=== PATIENT | male | born 1945 | race Caucasian/White ===

== ENCOUNTER → 2017-12-09 09:54 | Outpatient (CLI) | payer OTHER, SELFPAY ==
[2017-12-09 11:37] LABS: Prostate Specific Antigen < 0.064 ng/mL (0.10-4.00)
== END ==
PROVIDERS: PCP Family Medicine; Visit Provider Urology
DX: C61 Malignant neoplasm of prostate (principal)
CPT/HCPCS: 36415; 84153

== ENCOUNTER → 2017-12-18 14:46 | Oncology outpatient (ONC) | payer OTHER, SELFPAY ==
[2017-12-18 16:15] VITALS: BP 122/87; PULSE 60; RESP 15; TEMP 36.6; O2SAT 99
--- NOTE | 2017-12-19 12:23 | ONC.GENERIC ---
Diagnosis (1) Prostate cancer Diagnosis: 12/19/17 12:50 Mr. Perez is a very pleasant 72-year-old male from [place], [place]. He has been kindly referred today by Dr. Love for formal medical oncologic input, regarding previously diagnosed stage IIIB prostate cancer. History of Present Illness History Of Present Illness: 12/19/17 12:51 This kind gentleman's present illness, dates back to December 2014, when the patient was noted to have a sudden elevation in his PSA level, reportedly to 6.34. He was subsequently triaged by Dr. Daugherty, a urologist, in [place]. Prostatic biopsies were ultimately obtained, confirming prostate cancer (Ilana 3 + 4 = 7). The patient was then taken to the operating room on 06/02/2015, for a radical prostatectomy. Final pathology confirmed bilateral seminal vesicle invasion. The patient also had evidence of perineural invasion. Three regional lymph nodes were negative for metastatic disease. The patient was staged as T3b, N0, stage IIIB. Postoperatively, the patient was triaged by Dr. Nicole, who recommended consideration for adjuvant radiation therapy, which the patient respectfully declined. Postoperatively, the patient's PSA level quickly returned to a undetectable level. Subsequent PSA monitoring was conducted every 3 months. On 04/17/2017, a slight uptick in his PSA level was noted, at 0.076. A 2nd PSA level on 05/16/2017 was 0.072. On 06/11/2017, the patient received Lupron Depot 45 mg IM. Surveillance x-rays at that time, included a negative CT series and a negative bone scan. During this time frame, the patient was seen by Dr. Au, who apparently recommended consideration for salvage radiation therapy. Again, the patient respectfully declined treatment. Since receiving his LHRH agonist therapy in May, this gentleman's PSA levels have again returned to an undetectable level. The most recent PSA level that I have, from December 09, was less than 0.064. Mr. Perez commented today that he hated being on Lupron Depot. ?I hated the hot flashes, weight gain, dizziness and generalized weakness. Currently, this gentleman denies any complaints of focal bone pain in either his ribcage or spine. This gentleman is currently under treatment, for a poorly defined rheumatologic disorder, which is characterized by multi positional pain with movement. This was initially treated with prednisone by his freelance court reporter. Currently he is receiving weekly methotrexate, @ 25 mg per dosage. Home Medications and Allergies Home Medications Medication Instructions Recorded Confirmed Type difluprednate [Durezol] 1 drp OPHTH Q1-2D #0 06/12/16 12/18/17 History alendronate 70 mg PO QWEEK 12/18/17 12/18/17 History calcium citrate 250 mg PO QAM 12/18/17 12/18/17 History cholecalciferol (vitamin D3) 2,000 unit PO DAILY 12/18/17 12/18/17 History [Vitamin D3] ibuprofen 400 mg PO Q4-6H PRN 12/18/17 12/18/17 History methotrexate 10 mg/m2 PO QWEEK 12/18/17 12/18/17 History vitamin B complex 1 cap PO DAILY 12/18/17 12/18/17 History Allergies Allergy/AdvReac Type Severity Reaction Status Date / Time pseudoephedrine Allergy Severe URINARY Unverified 10/29/17 12:17 [PSEUDOEPHEDRINE] ISSUES Iodinated Contrast- Oral and Allergy Mild HOT, ITCHY Unverified 10/29/17 12:17 IV Dye [IODINATED CONTRAST MEDIA - IV DYE] Past History Past Medical History: As noted above, this patient remains under the care of a freelance court reporter, for a poorly defined rheumatologic disorder, characterized by multi positional pain on movement. This gentleman reportedly has a surveillance CBC obtained every 6 months. Social History: Mr. Perez is lives with his Talia in [place]. They have 2 grown sons. 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 Family History: Both parents are . His mother at age 50, from metastatic melanoma, in 1963. His father at age 92, apparently from a drug reaction. Two sisters and 1 brother survive. His only brother is obese and suffers from diabetes. He has significant neuropathy. He has previously had one of his lower extremities amputated. There is no family history of prostate cancer. Review of Systems Review of Systems: 1. General. The patient notes recent weight gain, while on the Lupron Depot. Current appetite is fine. He denies any recent fever, chills or night sweats. 2. HEENT. Recent diminution in visual acuity. No auditory complaints. 3. Lungs. No current complaints of cough or dyspnea. 4. Heart. No history of heart disease. 5. GI. No history of peptic ulcer disease, hepatitis or gallbladder disease. 6. . See present illness. 7. Rheumatologic. See past medical history. 8. Endocrine. No history of thyroid disease or diabetes. 9. Skin. Previous excision of several skin cancers, including both basal cell carcinoma and squamous cell carcinoma. 10. Neurologic. No history of stroke or seizure activity. Exam Vital Signs: Vital Signs - 24 hr 12/18/17 16:15 Temperature 97.8 F Pulse Rate 60 Respiratory Rate 15 Blood Pressure 122/87 H Pulse Oximetry 99 Exam: Blood pressure 122/87. Temperature 97.8?. Pulse rate 60. O2 saturation on room air was 99%. Weight 191 lb. The pupils today were equal and reactive to light. There was no scleral icterus. The oropharynx was clear. There was no direct percussible spinal tenderness. There was no palpable rib cage tenderness. Both lungs were clear to auscultation and percussion. No pathologic lymphadenopathy was noted today in the pre or postauricular, neck, chin, supraclavicular, axillary or inguinal areas. Minimal bilateral gynecomastia was noted. Heart sounds were fine. The abdomen was soft, nontender and without palpable hepatomegaly. There was no lower extremity edema. Skin examination was unremarkable. Impression In summary, this is a 72-year-old male, now approximately 30.5 months out from a radical prostatectomy for stage IIIB prostate cancer. This gentleman declined consideration for postoperative adjuvant radiation therapy. He subsequently displayed evidence of early biochemical relapse this past fall, which led to a single injection of Lupron Depot (45 mg.). At that time, the patient declined consideration for salvage radiation therapy. Previous large randomized clinical trials in patients with T3 and margin positive prostate cancer have demonstrated that adjuvant radiation therapy significantly improves both biochemical and metastatic relapse-free survival. However, these trials have yielded conflicting results regarding the impact on overall survival. Whether these benefits applied all patients with T3 disease, or only a subgroup to those with positive surgical margins, is uncertain. These trials compared adjuvant RT with a treatment strategy of observation in which salvage RT was not uniformly administered, if a biochemical recurrence was observed. Whether or not adjuvant RT offers a benefit in terms of metastatic-free and overall survival, compared with salvage RT given at the 1st evidence of a biochemical recurrence, remains uncertain. For men with pathologic stage T3 disease, national guidelines recommend consideration for adjuvant external beam radiation therapy following radical prostatectomy. For patient's choosing not to receive postoperative RT, careful monitoring for evidence of a biochemical recurrence, followed by salvage RT at the earliest evidence of relapse, is considered an alternative approach. In conclusion therefore, it is my recommendation that Mr. Perez reconsider salvage radiation therapy. I have also discussed my comments with his Talia. I have contacted the [facility], to get Mr. Perez signed up for revisitation with either Dr. Nicole or Dr. Au. I will schedule this gentleman back for revisitation in our office in approximately 3 months.
== END ==
PROVIDERS: PCP Family Medicine; Visit Provider Internal Medicine Hematology & Oncology
DX: C61 Malignant neoplasm of prostate (principal)
CPT/HCPCS: 99205; 99215

== ENCOUNTER → 2018-01-28 12:08 | Outpatient (CLI) | payer OTHER, SELFPAY ==
--- NOTE | 2018-01-28 12:10 | DI.RAD.S_ITS ---
PROCEDURE: XR LUMBAR SPINE MIN 4V INDICATIONS: Lumbar pain TECHNIQUE: 5 views of the lumbar spine were acquired. COMPARISON: None. FINDINGS: Bones: 5 nonrib-bearing vertebrae are present. There is normal bony alignment. No vertebral body compression fractures. No suspicious bony lesions. Soft tissues: Overlying bowel gas pattern is normal. No suspicious soft tissue calcifications. Oblique images: No pars defects. IMPRESSION: Minimal degenerative disc disease seen, no foraminal stenosis found. Dictated by: Delfin Silverio M.D. on 01/28/2018 at 12:45 Approved by: Delfin Silverio M.D. on 01/28/2018 at 12:45
== END ==
PROVIDERS: PCP Family Medicine; Visit Provider Family Medicine
DX: M51.36 Other intervertebral disc degeneration, lumbar region (principal)
CPT/HCPCS: 72110

== ENCOUNTER → 2018-01-29 12:23 | Outpatient (CLI) | payer OTHER, SELFPAY ==
[2018-01-31 17:48] LABS: Fecal Immunochemical Test NOT DETECTED
== END ==
PROVIDERS: PCP Family Medicine; Visit Provider Family Medicine
DX: Z12.11 Encounter for screening for malignant neoplasm of colon (principal)
CPT/HCPCS: 82274

== ENCOUNTER → 2018-05-06 13:13 | Outpatient (CLI) | payer OTHER, SELFPAY ==
--- NOTE | 2018-05-06 13:16 | DI.RAD.S_ITS ---
PROCEDURE: XR CHEST 2V INDICATIONS: syncope, chest wall pain TECHNIQUE: 2 views of the chest were acquired. COMPARISON: [facility], CT, ABDOMEN/PELVIS WITH CONTRAST, 06/11/2017, 10:01. [facility], CR, CHEST 1 VIEW, 12/03/2016, 12:34. FINDINGS: Surgical changes and devices: None. Lungs and pleura: No pleural effusions or pneumothorax. No acute consolidation. There is scattered subsegmental atelectasis and/or scarring. Mediastinum: Mediastinal contours are normal. Heart size is normal. Aorta is tortuous as before Bones and chest wall: No suspicious bony abnormalities. Soft tissues appear unremarkable. IMPRESSION: No acute disease. Subsegmental scarring/atelectasis Dictated by: Sukhdev Mccullough M.D. on 05/06/2018 at 14:23 Approved by: Sukhdev Mccullough M.D. on 05/06/2018 at 14:27
[2018-05-06 15:25] LABS: Add Manual Diff / Slide Review NO; Basophils Percent Auto 0.4 % (0-2); Eosinophils Percent Auto 1.7 % (2-4); Hematocrit 45.5 % (41-53); Hemoglobin 14.8 g/dL (13.5-17.5); Lymphocytes Percent Auto 15.5 % (25-40); Mean Corpuscular HGB Conc 32.6 % (30-36); Mean Corpuscular Hemoglobin 29.1 PG (26-34); Mean Corpuscular Volume 89.3 fL (80-100); Monocytes Percent Auto 6.2 % (3-14); Neutrophils Absolute Auto 3900 /uL (3000-5900); Neutrophils Percent Auto 76.2 % (50-75); Platelet Count 146 X10^3/uL (150-400); Red Blood Cell Count 5.09 X10^6/uL (4.5-5.9); Red Cell Distribution Width 17.2 % (11.6-14.8); White Blood Cell Count 5.1 X10^3/uL (4.5-11.0)
[2018-05-06 15:42] LABS: Alanine Aminotransferase 43 IU/L (21-72); Albumin 3.9 g/dL (3.5-5.0); Albumin Globulin Ratio 1.3 (1.0-2.8); Alkaline Phosphatase 91 U/L (38-126); Aspartate Aminotransferase 34 IU/L (17-59); Bilirubin Total 1.4 mg/dL (0.2-1.3); Blood Urea Nitrogen 24 mg/dL (9-20); Calcium 9.2 mg/dL (8.4-10.2); Carbon Dioxide 28 mmol/L (22-32); Chloride 106 mmol/L (98-107); Estimated Glomerular Filt Rate > 60.0 mL/min (>60); Glucose 78 mg/dL (80-110); HEMOLYSIS < 15 (0-50); Sodium 143 mmol/L (137-145); Total Protein 6.9 g/dL (6.3-8.2)
[2018-05-06 16:34] LABS: Thyroid Stimulating Hormone 3.65 uIU/mL (0.47-4.68)
== END ==
PROVIDERS: PCP Family Medicine; Visit Provider Family Medicine
DX: R07.89 Other chest pain (principal); R55 Syncope and collapse
CPT/HCPCS: 36415; 71046; 80053; 84443; 85025

== ENCOUNTER → 2018-06-09 08:17 | Outpatient (CLI) | payer OTHER, SELFPAY ==
--- NOTE | 2018-06-09 08:18 | DI.ECHO.S_ITS ---
[facility] +---------+ Hospital +---------+ : : [address] : : : : [id number] : : : : Phone: [phone]+ Echocardiogram Report + + :Name: FABRIZIO BUENO Study Date: 06/09/2018 Height: 74 in : :[facility] Exam Location: IS Weight: 185 lb : : Gender: Male BSA: 2.1 m2 : :: 1945 Age: 72 yrs BP: 110/58 mmHg: :Reason For Study: CHEST PAIN : : Performed By: Derick Mccracken : :Referring: VAHID JACOBS : + + Interpretation Summary The left ventricle is normal in size, wall thickness, and systolic function without any focal wall motion abnormalities. The right ventricle is normal in size and function. The right ventricular systolic pressure is estimated to be at least 24 mmHg based on an estimated right atrial pressure of 3 mm Hg. There is no pericardial effusion. The echocardiogram is within normal limits. This patient's echocardiogram is normal. A etiology for the patient's chest discomfort is not identified. Procedure: A two-dimensional transthoracic echocardiogram with color flow and Doppler was performed. The study quality was technically adequate. Comparison is made with the echocardiogram of 03/12/17. The patient was in normal sinus rhythm during the exam. Left Ventricle: The left ventricle is normal in size. There is normal left ventricular wall thickness. The left ventricle is normal in size, wall thickness, and systolic function without any focal wall motion abnormalities. The ejection fraction is estimated to be 60-65%. There are no focal wall motion abnormalities. Diastolic parameters suggest probable normal left ventricular diastolic function and normal filling pressures. Right Ventricle: The right ventricle is normal in size and function. The right ventricular systolic function is normal. Atria: Both atria are normal in size. The interatrial septum is intact with no evidence for an atrial septal defect. Mitral Valve: The mitral valve is normal in structure and function. There is a mild amount of early systolic mitral regurgitation. This is not a holosystolic jet of mitral regurgitation and likely is not at all hemodynamically significant. Aortic Valve: The aortic valve is normal in structure and function. The aortic valve is trileaflet. The aortic valve opens well. No aortic regurgitation is present. Tricuspid Valve: The tricuspid valve is normal in structure and function. There is mild tricuspid regurgitation. The right ventricular systolic pressure is estimated to be at least 24 mmHg based on an estimated right atrial pressure of 3 mm Hg. Pulmonic Valve: The pulmonic valve is normal in structure and function. There is trace pulmonic regurgitation. Great Vessels: The aortic root is normal size. The ascending aorta is mildly enlarged. The pulmonary artery is normal size. The IVC is of normal diameter and collapses greater than 50% with a sniff. This suggests a low right atrial pressure of 3 mm Hg. Pericardium/ Pleura There is no pericardial effusion. There is no pleural effusion. MMode/2D Measurements & Calculations LVIDd: 4.7 cm Ao root diam: 3.5 cm LVIDs: 2.6 cm Aortic Jxn: 2.8 cm FS: 45.0 % asc Aorta Diam: 3.9 cm EPSS: 0.51 cm Ao Arch Diam (Prox Trans): 2.8 cm IVSd: 1.1 cm LVPWd: 1.0 cm LV rodrigues. diameter/BSA (cm/m^2): 2.2 LV sys. diameter/BSA (cm/m^2): 1.2 LA dimension: 4.1 cm RA long axis: 4.9 cm LA A2 area: 20.7 cm2 RA area: 19.0 cm2 LA A4 area: 17.2 cm2 RA vol: 62.9 ml LA length (vol): 5.6 cm RA : 29.9 ml/m2 LA vol: 54.0 ml IVC diam: 1.5 cm LA vol index: 25.7 ml/m2 RVD1 (basal): 4.7 cm RVD2 (mid): 3.8 cm Doppler Measurements & Calculations Ao V2 max: 145.6 cm/sec LVOT Max Braxton: 103.5 cm/sec Ao V2 mean: 102.7 cm/sec LV V1 max P.3 mmHg Ao max P.5 mmHg LV V1 VTI: 24.7 cm Ao mean P.7 mmHg sev ratio: 0.72 Ao V2 VTI: 34.2 cm MV E max braxton: 63.0 cm/sec TR max braxton: 227.3 cm/sec MV A max braxton: 68.8 cm/sec TR max P.7 mmHg MV E/A: 0.92 PA V2 max: 80.3 cm/sec Med Peak E' Braxton: 15.3 cm/sec PA V2 mean: 60.1 cm/sec E/E' med: 4.1 PA mean P.6 mmHg Lat Peak E' Braxton: 6.1 cm/sec PA pr(Accel): 24.1 mmHg E/E' lat: 10.3 PA Accel Time: 0.12 sec E/e' average: 7.2 MV dec time: 0.17 sec Reading Physician:05:49 PM
--- NOTE | 2018-06-09 08:18 | DI.US.S_ITS ---
PROCEDURE: US CAROTID DOPPLER BI INDICATIONS: chest pain, syncope TECHNIQUE: Color and pulse Doppler interrogation was performed of both carotid systems, with image documentation and velocity measurements. COMPARISON: None. FINDINGS: Stenosis calculations are based on SRU (Society of Radiologists in Ultrasound) criteria. Right side: Brachial blood pressure: 109/68 mm Hg. Common carotid artery peak systolic velocity: 84 cm/sec. Internal carotid artery peak systolic velocity: 64 cm/sec. Internal carotid artery end diastolic velocity: 20 cm/sec. External carotid artery peak systolic velocity: 88 cm/sec. ICA/CCA peak systolic ratio: 0.8. Prieto scale imaging description: Normal. Percent internal carotid artery stenosis: None found. Vertebral artery: Flow direction is antegrade. Left side: Brachial blood pressure: 115/75 mm Hg. Common carotid artery peak systolic velocity: 91 cm/sec. Internal carotid artery peak systolic velocity: 81 cm/sec. Internal carotid artery end diastolic velocity: 17 cm/sec. External carotid artery peak systolic velocity: 108 cm/sec. ICA/CCA peak systolic ratio: 0.9. Prieto scale imaging description: Normal. Percent internal carotid artery stenosis: None found. Vertebral artery: Flow direction is antegrade. IMPRESSION: Normal examination bilaterally. Dictated by: Delfin Silverio M.D. on 06/09/2018 at 11:35 Approved by: Delfin Silverio M.D. on 06/09/2018 at 11:36
== END ==
PROVIDERS: PCP Family Medicine; Visit Provider Family Medicine
DX: I08.1 Rheumatic disorders of both mitral and tricuspid valves (principal); R07.89 Other chest pain; R55 Syncope and collapse
CPT/HCPCS: 93306; 93880

== ENCOUNTER → 2018-07-20 14:16 | Outpatient (CLI) | payer OTHER, SELFPAY ==
[2018-07-20 15:48] LABS: Prostate Specific Antigen < 0.064 ng/mL (0.10-4.00)
== END ==
PROVIDERS: Family Provider Family Medicine; PCP Family Medicine; Visit Provider Radiology Radiation Oncology
DX: Z85.46 Personal history of malignant neoplasm of prostate (principal)
CPT/HCPCS: 36415; 84153

== ENCOUNTER → 2018-08-12 10:47 | Outpatient (CLI) | payer OTHER, SELFPAY | PROVIDERS: Family Provider Family Medicine; PCP Family Medicine; Visit Provider Physician Assistant | DX: N39.0 Urinary tract infection, site not specified (principal) | CPT/HCPCS: 87077; 87086; 87186 ==

== ENCOUNTER → 2018-08-28 10:09 | Outpatient (CLI) | payer OTHER, SELFPAY ==
--- NOTE | 2018-08-28 10:11 | DI.RAD.S_ITS ---
PROCEDURE: XR CHEST 2V INDICATIONS: Rib pain TECHNIQUE: 2 views of the chest were acquired. COMPARISON: [facility], CR, XR CHEST 2V, 05/06/2018, 13:03. FINDINGS: Surgical changes and devices: None. Lungs and pleura: Lungs are clear. No pleural effusions or pneumothorax. Mediastinum: Calcified right, anterior paratracheal adenopathy, chronic. Prominent central pulmonary arteries. No central venous congestion. Tortuous, normal caliber thoracic aorta. Normal size heart. Bones and chest wall: No suspicious bony abnormalities. Chronic, mild T11 compression fracture. Soft tissues appear unremarkable. IMPRESSION: 1. No acute pulmonary process. 2. Mild COPD. 3. Chronic right paratracheal calcification. 4. Chronic, mild T11 compression fracture. Dictated by: Cris Obregon M.D. on 08/28/2018 at 11:06 Approved by: Cris Obregon M.D. on 08/28/2018 at 11:10
== END ==
PROVIDERS: PCP Family Medicine; Visit Provider Family Medicine
DX: R07.81 Pleurodynia (principal); J44.9 Chronic obstructive pulmonary disease, unspecified; J39.8 Other specified diseases of upper respiratory tract; M48.54XS Collapsed vertebra, not elsewhere classified, thoracic region, sequela of fracture
CPT/HCPCS: 71046

== ENCOUNTER → 2019-02-09 15:34 | Outpatient (CLI) | payer OTHER, SELFPAY ==
[2019-02-09 18:10] LABS: Prostate Specific Antigen < 0.064 ng/mL (0.10-4.00)
== END ==
PROVIDERS: PCP Family Medicine; Visit Provider Radiology Radiation Oncology
DX: C61 Malignant neoplasm of prostate (principal)
CPT/HCPCS: 36415; 84153

== ENCOUNTER → 2019-04-07 06:38 | Outpatient (CLI) | payer OTHER, SELFPAY ==
--- NOTE | 2019-04-07 06:39 | DI.MRI.S_ITS ---
PROCEDURE: MR HEAD/BRAIN WO/W CON INDICATIONS: Prostate cancer. Skin cancer. Ongoing headaches a right lens replacement can be seen.. Clinical concern for metastasis. TECHNIQUE: Noncontrast axial T1 spin echo, axial T2 fast spin echo, sagittal and axial FLAIR, coronal T2 fast spin echo, axial gradient echo, axial diffusion and ADC through the brain. After the administration of contrast, axial and coronal T1 spin echo with fat saturation through the brain. COMPARISON: [facility], CT, HEAD WITHOUT CONTRAST, 11/05/2012, 13:27. [facility], CT, HEAD WITHOUT CONTRAST, 02/05/2011, 10:28. FINDINGS: Image quality: Excellent. CSF spaces: Basal cisterns are patent. No extra-axial fluid collections. Ventricles are normal in size and shape. Brain: No midline shift. No intracranial bleeds or masses. No abnormal intracranial enhancement. There is cerebral volume loss for age. There is periventricular white matter chronic small vessel ischemic change. The brainstem appears normal. Diffusion-weighted images demonstrate no acute ischemic insults. No chronic ischemic insults. Normal intravascular flow voids are present. Skull and face: Calvarial marrow is normal in signal. Orbits appear normal. Sinuses: Sinuses and mastoids appear clear. IMPRESSION: No masses or abnormal enhancement can be seen. Note is made of age-appropriate brain parenchymal volume loss and chronic small vessel ischemic changes. No findings of acute or subacute infarction can be seen. Dictated by: Elias Preston M.D. on 04/07/2019 at 9:22 Approved by: Elias Preston M.D. on 04/07/2019 at 9:25
== END ==
PROVIDERS: PCP Family Medicine; Visit Provider Family Medicine
DX: C61 Malignant neoplasm of prostate (principal); C44.90 Unspecified malignant neoplasm of skin, unspecified; G44.83 Primary cough headache
CPT/HCPCS: 70553; A9579

== ENCOUNTER → 2019-06-02 13:36 | Outpatient (CLI) | payer OTHER, SELFPAY ==
[2019-06-02 14:30] LABS: BUN Creatinine Ratio 33.3 (6-22); Blood Urea Nitrogen 30 mg/dL (9-20); Carbon Dioxide 25 mmol/L (22-32); Chloride 108 mmol/L (98-107); Estimated Glomerular Filt Rate > 60.0 mL/min (>60); Glucose 76 mg/dL (80-110); HEMOLYSIS < 15 (0-50); Potassium 3.9 mmol/L (3.4-5.1); Sodium 140 mmol/L (137-145)
[2019-06-05 15:09] LABS: Parathyroid Hormone Int 26 pg/mL (14-64)
== END ==
PROVIDERS: PCP Family Medicine; Visit Provider Student in an Organized Health Care Education/Training Program
DX: M81.0 Age-related osteoporosis without current pathological fracture (principal); Z79.899 Other long term (current) drug therapy
CPT/HCPCS: 36415; 80048; 82306; 83970

== ENCOUNTER 2019-07-19 09:00 | Outpatient (RCR) | payer OTHER, SELFPAY ==
--- NOTE | 2019-04-23 15:02 | PT.OIE ---
Current Diagnoses Urgency of urination (04/23/19) Personal history of malignant neoplasm of prostate (04/23/19) Past Medical History (Last Reviewed 01/28/18 @ 11:47 by Verenice Love DO) Osteoarthritis (Chronic Unknown) Osteoporosis (Chronic Unknown) Prostate cancer (Acute ~2014) Rheumatoid arthritis (Chronic Unknown) Squamous cell carcinoma (Resolved ~05/2015) Tremor (Chronic Unknown) Past Surgical History (Last Reviewed 01/28/18 @ 11:48 by Verenice Love DO) History of carpal tunnel release (Resolved Unknown) Hx of prostatectomy (Resolved 2014) Hx of tonsillectomy (Resolved Unknown) Visit Care Team Role Provider Type Verenice Love DO Primary Care Provider Physician Specialty: [facility] Practice Address: [address] [place] [address], [address], [address] Email: [email or web address] Attending Provider Non-Staff Specialty: Urology Address: [address] [place] [address], [id number] Email: Physical Therapy Initial Evaluation PT-OP-A Visit Information Start: 04/23/19 13:01 Freq: Status: Active Protocol: Document 04/23/19 14:08 AMB (Rec: 04/23/19 15:02 AMB [email or web address]) Out-Patient Physical Therapy Visit Information Visit Information Visit Type Initial Evaluation Visit Start Time 08:15 Visit Stop Time 09:00 Total Visit Minutes 45 Visit Number 1 PT-OP-B Current Condition Start: 04/23/19 13:01 Freq: Status: Active Protocol: Document 04/23/19 14:08 AMB (Rec: 04/23/19 15:02 AMB [email or web address]) Current Condition History of Current Condition Onset Date 4 years ago Current Complaints constant dribbling of urine, erectile dysfunction History of Current Condition Wiliam reports prostate radical retropubic prostatectomy surgery 4 years ago, after which he has had near constant dribbling for which he uses a penile clamp and shield. He had prior physical therapy right after surgery, and is wondering if some specific instruction will help this go around too. He denies specific worsening of symptoms it has stayed about the same, although he did have radiation about 2 years ago. He denies pain. He does have some urgency but can control the urgency so that he doesn't leak. He has noticed impotence since his surgery. He denies constipation, difficulty starting or stopping the stream of urine. 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 He does not drink caffeine or alcohol, but also thinks he probably only drinks 24 oz of water a day. Prior Functional Status Baseline Function- Work/School Continent before prostate surgery. Current Functional Impairments (Reported) Functional Limitations- ADL's Constant dribbling which he is unaware of when standing unless uses clamp. Personal Factors Other Personal Factors That May Effect osteoporosis, essential tremor Therapy/Recovery PT-OP-C Subjective Start: 04/23/19 13:01 Freq: Status: Active Protocol: Document 04/23/19 14:08 AMB (Rec: 04/23/19 15:02 AMB [email or web address]) Patient Questionnaires Pelvic Pain and Urgency/Frequency Patient Symptom Scale Pelvic Pain Score 5 PT-OP-I Pelvic Floor Start: 04/23/19 13:01 Freq: Status: Active Protocol: Document 04/23/19 14:08 AMB (Rec: 04/23/19 15:02 AMB [email or web address]) Pelvic Floor Assessment Urine Pelvic Floor Surgery Yes: radical prostatectomy Urinary Symptoms Dribbling After Urination Other Urinary Symptoms dribbling is worse after the shower Leakage Size Small Leakage Cause Exercise Other Leakage Causes standing Leaks Per Day constant Voiding Frequency every 3-4 hours Nocturia 0-1 Pelvic Clock Inter-Rectal Assessment No tenderness reported with inter-anal assessment Contraction Ability Voluntary Contraction Weak Voluntary Relaxation Weak Manual Muscle Testing Left 3 Manual Muscle Testing Right 3 Manual Muscle Testing Anterior 3 Manual Muscle Testing Posterior 3 Muscle Endurance (Seconds) 5 Number of Quick Contractions In 10 8 Seconds PT-OP-T Assessment and Plan Start: 04/23/19 13:01 Freq: Status: Active Protocol: Document 04/23/19 14:08 AMB (Rec: 04/23/19 15:02 AMB [email or web address]) Physical Therapy Assessment Rehab Potential Rehabilitation Potential Good Evaluation Complexity Number of Personal Factors/Comorbidities 1-2 Number of Body Systems Impaired 3 Clinical Presentation at Evaluation Evolving Impairments Impairments Functional Activities,Soft Tissue Mobility,Strength Goals Three Impairment pelvic floor strength/ relaxation Short Term Goal (STG) Wiliam will increase his pelvic floor strength to 4/5. STG Duration 4 weeks Group Home Goal (LTG) Wiliam will be able to tighten and relax his pelvic floor on command. LTG Duration 8 weeks Two Impairment erectile dysfunction Short Term Goal (STG) Wiliam will be independent with an HEP to release his perineal muscles. STG Duration 4 weeks One Impairment continence Short Term Goal (STG) Wiliam will move from sit to stand without his clamp without leaking. STG Duration 4 weeks Group Home Goal (LTG) Wiliam will stand for 10 minutes without leaking. LTG Duration 8 weeks Assessment Summary Assessment Wiliam attends physical therapy 4 years s/p prostatectomy with radiation with near constant urinary leaking for which he uses a penile clamp. He does not notice leaking except when he is standing or walking. 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 He is also concerned about his erectile dysfunction, so if his pelvic floor muscles remain tight, progressive stretching/ relaxation may continue to be warranted. Physical Therapy Plan Frequency and Duration Frequency of Treatment 1x/Week Duration of Treatment 8 weeks Plan of Care Start Date 04/23/19 Plan of Care End Date 06/18/19 Therapeutic Interventions Therapeutic Interventions Gait Training,Manual Therapy, Neuromuscular Re-education, Self-Care/Home Management,Soft Tissue Mobilization, Therapeutic Activities, Therapeutic Exercises Modalities Biofeedback,Electric Stimulation Next Visit Focus/Plan Next Note Type Treatment Note Next Visit Plan sEMG for strengthening and relaxation.
--- NOTE | 2019-04-23 15:02 | PT.OPPOC ---
Current Diagnoses Urgency of urination (04/23/19) Personal history of malignant neoplasm of prostate (04/23/19) Visit Care Team Role Provider Type Verenice Love DO Primary Care Provider Physician Specialty: Family Practice Address: [address] [place] [address], [address], [place], [address] Email: [email or web address] Damon Attending Provider Non-Staff Specialty: Urology Address: [address] [place] [address], [id number] Email: Plan Of Care PT-OP-T Assessment and Plan Start: 04/23/19 13:01 Freq: Status: Active Protocol: Document 04/23/19 14:08 AMB (Rec: 04/23/19 15:02 AMB [email or web address]) Physical Therapy Assessment Rehab Potential Rehabilitation Potential Good Evaluation Complexity Number of Personal Factors/Comorbidities 1-2 Number of Body Systems Impaired 3 Clinical Presentation at Evaluation Evolving Impairments Impairments Functional Activities,Soft Tissue Mobility,Strength Goals Three Impairment pelvic floor strength/ relaxation Short Term Goal (STG) Wiliam will increase his pelvic floor strength to 4/5. STG Duration 4 weeks Alf Goal (LTG) Wiliam will be able to tighten and relax his pelvic floor on command. LTG Duration 8 weeks Two Impairment erectile dysfunction Short Term Goal (STG) Wiliam will be independent with an HEP to release his perineal muscles. STG Duration 4 weeks One Impairment continence Short Term Goal (STG) Wiliam will move from sit to stand without his clamp without leaking. STG Duration 4 weeks Alf Goal (LTG) Wiliam will stand for 10 minutes without leaking. LTG Duration 8 weeks Assessment Summary Assessment Wiliam attends physical therapy 4 years s/p prostatectomy with radiation with near constant urinary leaking for which he uses a penile clamp. He does not notice leaking except when he is standing or walking. 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 He is also concerned about his erectile dysfunction, so if his pelvic floor muscles remain tight, progressive stretching/ relaxation may continue to be warranted. Physical Therapy Plan Frequency and Duration Frequency of Treatment 1x/Week Duration of Treatment 8 weeks Plan of Care Start Date 04/23/19 Plan of Care End Date 06/18/19 Therapeutic Interventions Therapeutic Interventions Gait Training,Manual Therapy, Neuromuscular Re-education, Self-Care/Home Management,Soft Tissue Mobilization, Therapeutic Activities, Therapeutic Exercises Modalities Biofeedback,Electric Stimulation Next Visit Focus/Plan Next Note Type Treatment Note Next Visit Plan sEMG for strengthening and relaxation. Plan of Care Dates Plan of Care Start Date 04/23/19 Plan of Care End Date 06/18/19
--- NOTE | 2019-04-30 14:30 | PT.OTN ---
Current Diagnoses Urgency of urination (04/30/19) Personal history of malignant neoplasm of prostate (04/30/19) Physical Therapy Treatment Note PT-OP-A Visit Information Start: 04/23/19 13:01 Freq: Status: Active Protocol: Document 04/30/19 13:00 AMB (Rec: 05/01/19 10:42 AMB [email or web address]) Out-Patient Physical Therapy Visit Information Visit Information Visit Type Treatment Note Visit Start Time 13:00 Visit Stop Time 13:45 Total Visit Minutes 45 Visit Number 2 PT-OP-B Current Condition Start: 04/23/19 13:01 Freq: Status: Active Protocol: Document 04/23/19 14:08 AMB (Rec: 04/23/19 15:02 AMB [email or web address]) Current Condition History of Current Condition Onset Date 4 years ago Current Complaints constant dribbling of urine, erectile dysfunction History of Current Condition Wiliam reports prostate radical retropubic prostatectomy surgery 4 years ago, after which he has had near constant dribbling for which he uses a penile clamp and shield. He had prior physical therapy right after surgery, and is wondering if some specific instruction will help this go around too. He denies specific worsening of symptoms it has stayed about the same, although he did have radiation about 2 years ago. He denies pain. He does have some urgency but can control the urgency so that he doesn't leak. He has noticed impotence since his surgery. He denies constipation, difficulty starting or stopping the stream of urine. 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 He does not drink caffeine or alcohol, but also thinks he probably only drinks 24 oz of water a day. Prior Functional Status Baseline Function- Work/School Continent before prostate surgery. Current Functional Impairments (Reported) Functional Limitations- ADL's Constant dribbling which he is unaware of when standing unless uses clamp. Personal Factors Other Personal Factors That May Effect osteoporosis, essential tremor Therapy/Recovery PT-OP-C Subjective Start: 04/23/19 13:01 Freq: Status: Active Protocol: Document 04/30/19 13:00 AMB (Rec: 05/01/19 10:42 AMB [email or web address]) OP-PT Subjective Patient Comments Patient Comments When asked to expand on the erectile dysfunction that Wiliam was concerned about at [facility]- he has been unable to achieve any erection since the surgery, previous PT did not work on this. PT-OP-I Pelvic Floor Start: 04/23/19 13:01 Freq: Status: Active Protocol: Document 04/23/19 14:08 AMB (Rec: 04/23/19 15:02 AMB [email or web address]) Pelvic Floor Assessment Urine Pelvic Floor Surgery Yes: radical prostatectomy Urinary Symptoms Dribbling After Urination Other Urinary Symptoms dribbling is worse after the shower Leakage Size Small Leakage Cause Exercise Other Leakage Causes standing Leaks Per Day constant Voiding Frequency every 3-4 hours Nocturia 0-1 Pelvic Clock Inter-Rectal Assessment No tenderness reported with inter-anal assessment Contraction Ability Voluntary Contraction Weak Voluntary Relaxation Weak Manual Muscle Testing Left 3 Manual Muscle Testing Right 3 Manual Muscle Testing Anterior 3 Manual Muscle Testing Posterior 3 Muscle Endurance (Seconds) 5 Number of Quick Contractions In 10 8 Seconds PT-OP-Q Treatments Start: 04/23/19 13:01 Freq: Status: Active Protocol: Document 04/30/19 13:00 AMB (Rec: 05/01/19 10:42 AMB [email or web address]) Manual Therapy Treatment Soft Tissue Mobilization 1 Body Location B obterator internus Comments externally palpation, more tender on the R Neuro Re-Education Treatment Other Activities 1 Details sEMG quick flicks and long holds Comments vc to isolate for now PT-OP-T Assessment and Plan Start: 04/23/19 13:01 Freq: Status: Active Protocol: Document 04/30/19 13:00 AMB (Rec: 05/01/19 10:42 AMB [email or web address]) Physical Therapy Assessment Assessment Summary Assessment Wiliam had good relaxation and quick contraction, but had difficulty with long holds, tends to compensate with abdominals. Physical Therapy Plan Next Visit Focus/Plan Next Note Type Treatment Note Next Visit Plan sEMG for strengthening and relaxation.
--- NOTE | 2019-05-06 16:00 | PT.OTN ---
Current Diagnoses Urgency of urination (05/06/19) Personal history of malignant neoplasm of prostate (05/06/19) Physical Therapy Treatment Note PT-OP-A Visit Information Start: 04/23/19 13:01 Freq: Status: Active Protocol: Document 05/06/19 14:30 AMB (Rec: 05/06/19 15:46 AMB [email or web address]) Out-Patient Physical Therapy Visit Information Visit Information Visit Type Treatment Note Visit Start Time 14:30 Visit Stop Time 15:20 Total Visit Minutes 50 Visit Number 3 PT-OP-B Current Condition Start: 04/23/19 13:01 Freq: Status: Active Protocol: Document 04/23/19 14:08 AMB (Rec: 04/23/19 15:02 AMB [email or web address]) Current Condition History of Current Condition Onset Date 4 years ago Current Complaints constant dribbling of urine, erectile dysfunction History of Current Condition Wiliam reports prostate radical retropubic prostatectomy surgery 4 years ago, after which he has had near constant dribbling for which he uses a penile clamp and shield. He had prior physical therapy right after surgery, and is wondering if some specific instruction will help this go around too. He denies specific worsening of symptoms it has stayed about the same, although he did have radiation about 2 years ago. He denies pain. He does have some urgency but can control the urgency so that he doesn't leak. He has noticed impotence since his surgery. He denies constipation, difficulty starting or stopping the stream of urine. 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 He does not drink caffeine or alcohol, but also thinks he probably only drinks 24 oz of water a day. Prior Functional Status Baseline Function- Work/School Continent before prostate surgery. Current Functional Impairments (Reported) Functional Limitations- ADL's Constant dribbling which he is unaware of when standing unless uses clamp. Personal Factors Other Personal Factors That May Effect osteoporosis, essential tremor Therapy/Recovery PT-OP-C Subjective Start: 04/23/19 13:01 Freq: Status: Active Protocol: Document 05/06/19 14:30 AMB (Rec: 05/06/19 15:46 AMB [email or web address]) OP-PT Subjective Patient Comments Patient Comments Pt is doing about the same. No tenderness noted after last visit, but did have more leaking than usual with hiking this morning. PT-OP-I Pelvic Floor Start: 04/23/19 13:01 Freq: Status: Active Protocol: Document 04/23/19 14:08 AMB (Rec: 04/23/19 15:02 AMB [email or web address]) Pelvic Floor Assessment Urine Pelvic Floor Surgery Yes: radical prostatectomy Urinary Symptoms Dribbling After Urination Other Urinary Symptoms dribbling is worse after the shower Leakage Size Small Leakage Cause Exercise Other Leakage Causes standing Leaks Per Day constant Voiding Frequency every 3-4 hours Nocturia 0-1 Pelvic Clock Inter-Rectal Assessment No tenderness reported with inter-anal assessment Contraction Ability Voluntary Contraction Weak Voluntary Relaxation Weak Manual Muscle Testing Left 3 Manual Muscle Testing Right 3 Manual Muscle Testing Anterior 3 Manual Muscle Testing Posterior 3 Muscle Endurance (Seconds) 5 Number of Quick Contractions In 10 8 Seconds PT-OP-Q Treatments Start: 04/23/19 13:01 Freq: Status: Active Protocol: Document 05/06/19 14:30 AMB (Rec: 05/07/19 08:03 AMB [email or web address]) Therapeutic Exercises Supine Exercises 3 Supine Exercise Name hip flexor stretch Reps/Minutes 30x2 2 Supine Exercise Name piriformis stretch Reps/Minutes 30x2 1 Supine Exercise Name hamstring stretch bilateral Comments passive Sitting Exercises 1 Sitting Exercise Name V sitting Reps/Minutes 30x2 Standing Exercises 3 Standing Exercise Name downward dog Reps/Minutes 30x2 2 Standing Exercise Name standing hamstring stretch against wall Reps/Minutes 30x2 1 Standing Exercise Name wide squat with thoracic rotation Reps/Minutes 30x2 Manual Therapy Treatment Soft Tissue Mobilization 1 Body Location B obterator internus Comments externally palpation, no significant tenderness today- checked levator ani and coccygeus today too. PT-OP-T Assessment and Plan Start: 04/23/19 13:01 Freq: Status: Active Protocol: Document 05/06/19 14:30 AMB (Rec: 05/07/19 08:03 AMB [email or web address]) Physical Therapy Assessment Assessment Summary Assessment No active or latent trigger points found in pelvis, pt with tight hamstrings and adductors. Will focus most on strengthening anteriorly. Physical Therapy Plan Next Visit Focus/Plan Next Note Type Treatment Note Next Visit Plan sEMG for strengthening and relaxation.
--- NOTE | 2019-05-14 13:58 | PT.OTN ---
Current Diagnoses Urgency of urination (05/14/19) Personal history of malignant neoplasm of prostate (05/14/19) Physical Therapy Treatment Note PT-OP-A Visit Information Start: 04/23/19 13:01 Freq: Status: Active Protocol: Document 05/14/19 13:00 AMB (Rec: 05/14/19 13:46 AMB [id number]) Out-Patient Physical Therapy Visit Information Visit Information Visit Type Treatment Note Visit Start Time 13:00 Visit Stop Time 13:45 Total Visit Minutes 45 Visit Number 4 PT-OP-B Current Condition Start: 04/23/19 13:01 Freq: Status: Active Protocol: Document 04/23/19 14:08 AMB (Rec: 04/23/19 15:02 AMB [email or web address]) Current Condition History of Current Condition Onset Date 4 years ago Current Complaints constant dribbling of urine, erectile dysfunction History of Current Condition Wiliam reports prostate radical retropubic prostatectomy surgery 4 years ago, after which he has had near constant dribbling for which he uses a penile clamp and shield. He had prior physical therapy right after surgery, and is wondering if some specific instruction will help this go around too. He denies specific worsening of symptoms it has stayed about the same, although he did have radiation about 2 years ago. He denies pain. He does have some urgency but can control the urgency so that he doesn't leak. He has noticed impotence since his surgery. He denies constipation, difficulty starting or stopping the stream of urine. 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 He does not drink caffeine or alcohol, but also thinks he probably only drinks 24 oz of water a day. Prior Functional Status Baseline Function- Work/School Continent before prostate surgery. Current Functional Impairments (Reported) Functional Limitations- ADL's Constant dribbling which he is unaware of when standing unless uses clamp. Personal Factors Other Personal Factors That May Effect osteoporosis, essential tremor Therapy/Recovery PT-OP-C Subjective Start: 04/23/19 13:01 Freq: Status: Active Protocol: Document 05/14/19 13:00 AMB (Rec: 05/14/19 13:46 AMB [id number]) OP-PT Subjective Patient Comments Patient Comments Pt forgot sensor today, has previously tried penile pump and did not find it helpufl. PT-OP-I Pelvic Floor Start: 04/23/19 13:01 Freq: Status: Active Protocol: Document 04/23/19 14:08 AMB (Rec: 04/23/19 15:02 AMB [email or web address]) Pelvic Floor Assessment Urine Pelvic Floor Surgery Yes: radical prostatectomy Urinary Symptoms Dribbling After Urination Other Urinary Symptoms dribbling is worse after the shower Leakage Size Small Leakage Cause Exercise Other Leakage Causes standing Leaks Per Day constant Voiding Frequency every 3-4 hours Nocturia 0-1 Pelvic Clock Inter-Rectal Assessment No tenderness reported with inter-anal assessment Contraction Ability Voluntary Contraction Weak Voluntary Relaxation Weak Manual Muscle Testing Left 3 Manual Muscle Testing Right 3 Manual Muscle Testing Anterior 3 Manual Muscle Testing Posterior 3 Muscle Endurance (Seconds) 5 Number of Quick Contractions In 10 8 Seconds PT-OP-Q Treatments Start: 04/23/19 13:01 Freq: Status: Active Protocol: Document 05/14/19 13:00 AMB (Rec: 05/15/19 13:58 AMB [email or web address]) Therapeutic Exercises Sitting Exercises 2 Sitting Exercise Name long holds 1 Sitting Exercise Name roll in roll out Resistance #3 tband Reps/Minutes 2x10 Standing Exercises 5 Standing Exercise Name sit to stand Comments difficult 4 Standing Exercise Name quick flicks and long holds Reps/Minutes 10 ea Comments with varied foot position PT-OP-T Assessment and Plan Start: 04/23/19 13:01 Freq: Status: Active Protocol: Document 05/14/19 13:00 AMB (Rec: 05/15/19 13:58 AMB [email or web address]) Physical Therapy Assessment Assessment Summary Assessment Pt's priority is the incontinence. Tolerated progression from supine to seated to standing well but sustaining a long hold remains challenging. Physical Therapy Plan Next Visit Focus/Plan Next Note Type Treatment Note Next Visit Plan sEMG for strengthening and relaxation.
--- NOTE | 2019-05-21 13:46 | PT.OTN ---
Current Diagnoses Urgency of urination (05/21/19) Personal history of malignant neoplasm of prostate (05/21/19) Physical Therapy Treatment Note PT-OP-A Visit Information Start: 04/23/19 13:01 Freq: Status: Active Protocol: Document 05/21/19 13:00 AMB (Rec: 05/21/19 13:45 AMB [id number]) Out-Patient Physical Therapy Visit Information Visit Information Visit Type Treatment Note Visit Start Time 13:00 Visit Stop Time 13:45 Total Visit Minutes 45 Visit Number 5 PT-OP-B Current Condition Start: 04/23/19 13:01 Freq: Status: Active Protocol: Document 04/23/19 14:08 AMB (Rec: 04/23/19 15:02 AMB [email or web address]) Current Condition History of Current Condition Onset Date 4 years ago Current Complaints constant dribbling of urine, erectile dysfunction History of Current Condition Wiliam reports prostate radical retropubic prostatectomy surgery 4 years ago, after which he has had near constant dribbling for which he uses a penile clamp and shield. He had prior physical therapy right after surgery, and is wondering if some specific instruction will help this go around too. He denies specific worsening of symptoms it has stayed about the same, although he did have radiation about 2 years ago. He denies pain. He does have some urgency but can control the urgency so that he doesn't leak. He has noticed impotence since his surgery. He denies constipation, difficulty starting or stopping the stream of urine. 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 He does not drink caffeine or alcohol, but also thinks he probably only drinks 24 oz of water a day. Prior Functional Status Baseline Function- Work/School Continent before prostate surgery. Current Functional Impairments (Reported) Functional Limitations- ADL's Constant dribbling which he is unaware of when standing unless uses clamp. Personal Factors Other Personal Factors That May Effect osteoporosis, essential tremor Therapy/Recovery PT-OP-C Subjective Start: 04/23/19 13:01 Freq: Status: Active Protocol: Document 05/21/19 13:00 AMB (Rec: 05/21/19 13:45 AMB [id number]) OP-PT Subjective Patient Comments Patient Comments Pt feeling hopeful that leaking is a little less, although standing exercises remain quite challenging. PT-OP-I Pelvic Floor Start: 04/23/19 13:01 Freq: Status: Active Protocol: Document 04/23/19 14:08 AMB (Rec: 04/23/19 15:02 AMB [email or web address]) Pelvic Floor Assessment Urine Pelvic Floor Surgery Yes: radical prostatectomy Urinary Symptoms Dribbling After Urination Other Urinary Symptoms dribbling is worse after the shower Leakage Size Small Leakage Cause Exercise Other Leakage Causes standing Leaks Per Day constant Voiding Frequency every 3-4 hours Nocturia 0-1 Pelvic Clock Inter-Rectal Assessment No tenderness reported with inter-anal assessment Contraction Ability Voluntary Contraction Weak Voluntary Relaxation Weak Manual Muscle Testing Left 3 Manual Muscle Testing Right 3 Manual Muscle Testing Anterior 3 Manual Muscle Testing Posterior 3 Muscle Endurance (Seconds) 5 Number of Quick Contractions In 10 8 Seconds PT-OP-Q Treatments Start: 04/23/19 13:01 Freq: Status: Active Protocol: Document 05/21/19 13:00 AMB (Rec: 05/21/19 13:45 AMB [id number]) Therapeutic Exercises Sitting Exercises 2 Sitting Exercise Name long holds Standing Exercises 5 Standing Exercise Name sit to stand Comments difficult 4 Standing Exercise Name quick flicks and long holds Reps/Minutes 10 ea Comments with varied foot position PT-OP-T Assessment and Plan Start: 04/23/19 13:01 Freq: Status: Active Protocol: Document 05/21/19 13:00 AMB (Rec: 05/21/19 13:45 AMB [id number]) Physical Therapy Assessment Assessment Summary Assessment Pt went on a 5 mile hike up and down [place] and didn't feel leaking so is hopeful things are improving a bit. Did have difficulty with feeling that there was something to relax when doing exercises at home. Physical Therapy Plan Next Visit Focus/Plan Next Note Type Treatment Note Next Visit Plan sEMG for strengthening and relaxation.
--- NOTE | 2019-06-07 12:51 | PT.OTN ---
Current Diagnoses Urgency of urination (06/07/19) Personal history of malignant neoplasm of prostate (06/07/19) Physical Therapy Treatment Note PT-OP-A Visit Information Start: 04/23/19 13:01 Freq: Status: Active Protocol: Document 06/07/19 07:30 AMB (Rec: 06/07/19 08:04 AMB [id number]) Out-Patient Physical Therapy Visit Information Visit Information Visit Type Treatment Note Visit Start Time 07:30 Visit Stop Time 08:15 Total Visit Minutes 45 Visit Number 6 PT-OP-B Current Condition Start: 04/23/19 13:01 Freq: Status: Active Protocol: Document 04/23/19 14:08 AMB (Rec: 04/23/19 15:02 AMB [email or web address]) Current Condition History of Current Condition Onset Date 4 years ago Current Complaints constant dribbling of urine, erectile dysfunction History of Current Condition Wiliam reports prostate radical retropubic prostatectomy surgery 4 years ago, after which he has had near constant dribbling for which he uses a penile clamp and shield. He had prior physical therapy right after surgery, and is wondering if some specific instruction will help this go around too. He denies specific worsening of symptoms it has stayed about the same, although he did have radiation about 2 years ago. He denies pain. He does have some urgency but can control the urgency so that he doesn't leak. He has noticed impotence since his surgery. He denies constipation, difficulty starting or stopping the stream of urine. 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 He does not drink caffeine or alcohol, but also thinks he probably only drinks 24 oz of water a day. Prior Functional Status Baseline Function- Work/School Continent before prostate surgery. Current Functional Impairments (Reported) Functional Limitations- ADL's Constant dribbling which he is unaware of when standing unless uses clamp. Personal Factors Other Personal Factors That May Effect osteoporosis, essential tremor Therapy/Recovery PT-OP-C Subjective Start: 04/23/19 13:01 Freq: Status: Active Protocol: Document 06/07/19 07:30 AMB (Rec: 06/07/19 08:04 AMB [id number]) OP-PT Subjective Patient Comments Patient Comments Pt can feel slight soreness with contraction 10 seconds but that goes away. PT-OP-I Pelvic Floor Start: 04/23/19 13:01 Freq: Status: Active Protocol: Document 04/23/19 14:08 AMB (Rec: 04/23/19 15:02 AMB [email or web address]) Pelvic Floor Assessment Urine Pelvic Floor Surgery Yes: radical prostatectomy Urinary Symptoms Dribbling After Urination Other Urinary Symptoms dribbling is worse after the shower Leakage Size Small Leakage Cause Exercise Other Leakage Causes standing Leaks Per Day constant Voiding Frequency every 3-4 hours Nocturia 0-1 Pelvic Clock Inter-Rectal Assessment No tenderness reported with inter-anal assessment Contraction Ability Voluntary Contraction Weak Voluntary Relaxation Weak Manual Muscle Testing Left 3 Manual Muscle Testing Right 3 Manual Muscle Testing Anterior 3 Manual Muscle Testing Posterior 3 Muscle Endurance (Seconds) 5 Number of Quick Contractions In 10 8 Seconds PT-OP-Q Treatments Start: 04/23/19 13:01 Freq: Status: Active Protocol: Document 06/07/19 11:11 AMB (Rec: 06/07/19 12:51 AMB [email or web address]) Therapeutic Exercises Sidelying Exercises 1 Sidelying Exercise Name quick flicks and long holds with sEMG Standing Exercises 5 Standing Exercise Name sit to stand Comments difficult 4 Standing Exercise Name quick flicks and long holds Reps/Minutes 10 ea Comments with varied foot position PT-OP-T Assessment and Plan Start: 04/23/19 13:01 Freq: Status: Active Protocol: Document 06/07/19 11:11 AMB (Rec: 06/07/19 12:51 AMB [email or web address]) Physical Therapy Assessment Assessment Summary Assessment Pt is thinking with prompting, that symptoms may be better, because he is noticing less leaking when getting out of the shower. He did feel that he leaked when getting out of the tub though. Physical Therapy Plan Next Visit Focus/Plan Next Note Type Treatment Note Next Visit Plan sEMG for strengthening and relaxation.
--- NOTE | 2019-07-02 15:04 | PT.OTN ---
Current Diagnoses Urgency of urination (07/02/19) Personal history of malignant neoplasm of prostate (07/02/19) Physical Therapy Treatment Note PT-OP-A Visit Information Start: 04/23/19 13:01 Freq: Status: Active Protocol: Document 07/02/19 13:45 AMB (Rec: 07/02/19 15:04 AMB [email or web address]) Out-Patient Physical Therapy Visit Information Visit Information Visit Type Treatment Note Visit Start Time 13:45 Visit Stop Time 14:30 Total Visit Minutes 45 Visit Number 7 PT-OP-B Current Condition Start: 04/23/19 13:01 Freq: Status: Active Protocol: Document 04/23/19 14:08 AMB (Rec: 04/23/19 15:02 AMB [email or web address]) Current Condition History of Current Condition Onset Date 4 years ago Current Complaints constant dribbling of urine, erectile dysfunction History of Current Condition Wiliam reports prostate radical retropubic prostatectomy surgery 4 years ago, after which he has had near constant dribbling for which he uses a penile clamp and shield. He had prior physical therapy right after surgery, and is wondering if some specific instruction will help this go around too. He denies specific worsening of symptoms it has stayed about the same, although he did have radiation about 2 years ago. He denies pain. He does have some urgency but can control the urgency so that he doesn't leak. He has noticed impotence since his surgery. He denies constipation, difficulty starting or stopping the stream of urine. 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 He does not drink caffeine or alcohol, but also thinks he probably only drinks 24 oz of water a day. Prior Functional Status Baseline Function- Work/School Continent before prostate surgery. Current Functional Impairments (Reported) Functional Limitations- ADL's Constant dribbling which he is unaware of when standing unless uses clamp. Personal Factors Other Personal Factors That May Effect osteoporosis, essential tremor Therapy/Recovery PT-OP-C Subjective Start: 04/23/19 13:01 Freq: Status: Active Protocol: Document 07/02/19 13:45 AMB (Rec: 07/02/19 15:04 AMB [email or web address]) OP-PT Subjective Patient Comments Patient Comments Pt tried to go a morning without wearing his clamp or a pad. He did not leak for about 4 hours- then he did his exercises and did well with those until he tried the squats and did leak with that. PT-OP-I Pelvic Floor Start: 04/23/19 13:01 Freq: Status: Active Protocol: Document 04/23/19 14:08 AMB (Rec: 04/23/19 15:02 AMB [email or web address]) Pelvic Floor Assessment Urine Pelvic Floor Surgery Yes: radical prostatectomy Urinary Symptoms Dribbling After Urination Other Urinary Symptoms dribbling is worse after the shower Leakage Size Small Leakage Cause Exercise Other Leakage Causes standing Leaks Per Day constant Voiding Frequency every 3-4 hours Nocturia 0-1 Pelvic Clock Inter-Rectal Assessment No tenderness reported with inter-anal assessment Contraction Ability Voluntary Contraction Weak Voluntary Relaxation Weak Manual Muscle Testing Left 3 Manual Muscle Testing Right 3 Manual Muscle Testing Anterior 3 Manual Muscle Testing Posterior 3 Muscle Endurance (Seconds) 5 Number of Quick Contractions In 10 8 Seconds PT-OP-Q Treatments Start: 04/23/19 13:01 Freq: Status: Active Protocol: Document 07/02/19 13:45 AMB (Rec: 07/02/19 15:04 AMB [email or web address]) Therapeutic Exercises Sitting Exercises 2 Sitting Exercise Name long holds Standing Exercises 5 Standing Exercise Name sit to stand Comments difficult 4 Standing Exercise Name quick flicks and long holds Reps/Minutes 10 ea Comments with varied foot position PT-OP-T Assessment and Plan Start: 04/23/19 13:01 Freq: Status: Active Protocol: Document 07/02/19 13:45 AMB (Rec: 07/02/19 15:04 AMB [email or web address]) Physical Therapy Assessment Assessment Summary Assessment Pt symptoms are improving, but continues to leak with increased abdominal pressure. Physical Therapy Plan Next Visit Focus/Plan Next Note Type Treatment Note Next Visit Plan sEMG for strengthening and relaxation.
--- NOTE | 2019-07-02 15:08 | PT.OPPOC ---
Current Diagnoses Urgency of urination (07/02/19) Personal history of malignant neoplasm of prostate (07/02/19) Visit Care Team Role Provider Type Verenice Love DO Primary Care Provider Physician Specialty: Family Practice Address: [address] [place] [address], [facility] [address], [place], [address] Email: [email or web address] Attending Provider Non-Staff Specialty: Urology Address: [address] [place] [address], [id number] Email: Plan Of Care PT-OP-T Assessment and Plan Start: 04/23/19 13:01 Freq: Status: Active Protocol: Document 07/02/19 13:45 AMB (Rec: 07/02/19 15:04 AMB [email or web address]) Physical Therapy Assessment Goals Three Impairment pelvic floor strength/ relaxation Short Term Goal (STG) Wiliam will increase his pelvic floor strength to 4/5. STG Duration 4 weeks Mcfp Goal (LTG) Wiliam will be able to tighten and relax his pelvic floor on command. LTG Duration MET Two Impairment erectile dysfunction Short Term Goal (STG) Wiliam will be independent with an HEP to release his perineal muscles. STG Duration 4 weeks One Impairment continence Short Term Goal (STG) Wiliam will move from sit to stand without his clamp without leaking. STG Duration 4 weeks Mcfp Goal (LTG) Wiliam will stand for 10 minutes without leaking. LTG Duration MET Assessment Summary Assessment Pt symptoms are improving, but continues to leak with increased abdominal pressure. Physical Therapy Plan Frequency and Duration Frequency of Treatment Every Other Week Duration of Treatment 8 weeks Plan of Care Start Date 07/02/19 Plan of Care End Date 08/27/19 Therapeutic Interventions Therapeutic Interventions Gait Training,Manual Therapy, Neuromuscular Re-education, Self-Care/Home Management,Soft Tissue Mobilization, Therapeutic Activities, Therapeutic Exercises Modalities Biofeedback,Electric Stimulation Next Visit Focus/Plan Next Note Type Treatment Note Next Visit Plan sEMG for strengthening and relaxation. Plan of Care Dates Plan of Care Start Date 07/02/19 Plan of Care End Date 08/27/19
--- NOTE | 2019-07-19 13:00 | PT.OTN ---
Current Diagnoses Urgency of urination (07/19/19) Personal history of malignant neoplasm of prostate (07/19/19) Physical Therapy Treatment Note PT-OP-A Visit Information Start: 04/23/19 13:01 Freq: Status: Active Protocol: Document 07/19/19 09:00 AMB (Rec: 07/19/19 10:00 AMB [email or web address]) Out-Patient Physical Therapy Visit Information Visit Information Visit Type Treatment Note Visit Start Time 09:00 Visit Stop Time 09:45 Total Visit Minutes 45 Visit Number 8 PT-OP-B Current Condition Start: 04/23/19 13:01 Freq: Status: Active Protocol: Document 04/23/19 14:08 AMB (Rec: 04/23/19 15:02 AMB [email or web address]) Current Condition History of Current Condition Onset Date 4 years ago Current Complaints constant dribbling of urine, erectile dysfunction History of Current Condition Wiliam reports prostate radical retropubic prostatectomy surgery 4 years ago, after which he has had near constant dribbling for which he uses a penile clamp and shield. He had prior physical therapy right after surgery, and is wondering if some specific instruction will help this go around too. He denies specific worsening of symptoms it has stayed about the same, although he did have radiation about 2 years ago. He denies pain. He does have some urgency but can control the urgency so that he doesn't leak. He has noticed impotence since his surgery. He denies constipation, difficulty starting or stopping the stream of urine. 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 He does not drink caffeine or alcohol, but also thinks he probably only drinks 24 oz of water a day. Prior Functional Status Baseline Function- Work/School Continent before prostate surgery. Current Functional Impairments (Reported) Functional Limitations- ADL's Constant dribbling which he is unaware of when standing unless uses clamp. Personal Factors Other Personal Factors That May Effect osteoporosis, essential tremor Therapy/Recovery PT-OP-C Subjective Start: 04/23/19 13:01 Freq: Status: Active Protocol: Document 07/19/19 09:00 AMB (Rec: 07/19/19 10:00 AMB [email or web address]) OP-PT Subjective Patient Comments Patient Comments Pt has been noticing leaking when getting into his car, he feels that if there is pressure on his urethra he leaks more, although hiking and at the gym he does not notice leaking. PT-OP-I Pelvic Floor Start: 04/23/19 13:01 Freq: Status: Active Protocol: Document 04/23/19 14:08 AMB (Rec: 04/23/19 15:02 AMB [email or web address]) Pelvic Floor Assessment Urine Pelvic Floor Surgery Yes: radical prostatectomy Urinary Symptoms Dribbling After Urination Other Urinary Symptoms dribbling is worse after the shower Leakage Size Small Leakage Cause Exercise Other Leakage Causes standing Leaks Per Day constant Voiding Frequency every 3-4 hours Nocturia 0-1 Pelvic Clock Inter-Rectal Assessment No tenderness reported with inter-anal assessment Contraction Ability Voluntary Contraction Weak Voluntary Relaxation Weak Manual Muscle Testing Left 3 Manual Muscle Testing Right 3 Manual Muscle Testing Anterior 3 Manual Muscle Testing Posterior 3 Muscle Endurance (Seconds) 5 Number of Quick Contractions In 10 8 Seconds PT-OP-Q Treatments Start: 04/23/19 13:01 Freq: Status: Active Protocol: Document 07/19/19 09:00 AMB (Rec: 07/19/19 12:59 AMB [email or web address]) Therapeutic Exercises Sitting Exercises 1 Sitting Exercise Name roll in roll out Resistance #3 tband Reps/Minutes 2x10 Comments discussion of use of TA and glutes Neuro Re-Education Treatment Other Activities 1 Details sEMG quick flicks and long holds Comments Max 31, baseline 7, fatigues quickly, after about 5-6 long holds max goes to 20. PT-OP-T Assessment and Plan Start: 04/23/19 13:01 Freq: Status: Active Protocol: Document 07/19/19 09:00 AMB (Rec: 07/19/19 12:59 AMB [email or web address]) Physical Therapy Assessment Assessment Summary Assessment Pt overall noticing less leaking, but did have a lot of leaking yesterday with pressure on the urethra with getting in and out of the car. Not sure if lifting the luggage increased that or not. Physical Therapy Plan Next Visit Focus/Plan Next Note Type Treatment Note Next Visit Plan Pt going to see urologist next week.
--- NOTE | 2020-01-19 16:20 | PT.OPDS ---
Current Diagnoses Urgency of urination (07/19/19) Personal history of malignant neoplasm of prostate (07/19/19) Visit Care Team Role Provider Type Verenice Love DO Primary Care Provider Non-Staff Specialty: Family Practice Address: [address] [place] [address], [facility] [address], [place], [address] Email: [email or web address] Domingo Damon Attending Provider Non-Staff Specialty: Urology Address: [address] [place] [address], [id number] Email: Visit Number Visit Number 8 Discharge Summary PT-OP-B Current Condition Start: 04/23/19 13:01 Freq: Status: Active Protocol: Document 04/23/19 14:08 AMB (Rec: 04/23/19 15:02 AMB [email or web address]) Current Condition History of Current Condition Onset Date 4 years ago Current Complaints constant dribbling of urine, erectile dysfunction History of Current Condition Wiliam reports prostate radical retropubic prostatectomy surgery 4 years ago, after which he has had near constant dribbling for which he uses a penile clamp and shield. He had prior physical therapy right after surgery, and is wondering if some specific instruction will help this go around too. He denies specific worsening of symptoms it has stayed about the same, although he did have radiation about 2 years ago. He denies pain. He does have some urgency but can control the urgency so that he doesn't leak. He has noticed impotence since his surgery. He denies constipation, difficulty starting or stopping the stream of urine. 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 He does not drink caffeine or alcohol, but also thinks he probably only drinks 24 oz of water a day. Prior Functional Status Baseline Function- Work/School Continent before prostate surgery. Current Functional Impairments (Reported) Functional Limitations- ADL's Constant dribbling which he is unaware of when standing unless uses clamp. Personal Factors Other Personal Factors That May Effect osteoporosis, essential tremor Therapy/Recovery PT-OP-C Subjective Start: 04/23/19 13:01 Freq: Status: Active Protocol: Document 07/19/19 09:00 AMB (Rec: 07/19/19 10:00 AMB [email or web address]) OP-PT Subjective Patient Comments Patient Comments Pt has been noticing leaking when getting into his car, he feels that if there is pressure on his urethra he leaks more, although hiking and at the gym he does not notice leaking. PT-OP-I Pelvic Floor Start: 04/23/19 13:01 Freq: Status: Active Protocol: Document 04/23/19 14:08 AMB (Rec: 04/23/19 15:02 AMB [email or web address]) Pelvic Floor Assessment Urine Pelvic Floor Surgery Yes: radical prostatectomy Urinary Symptoms Dribbling After Urination Other Urinary Symptoms dribbling is worse after the shower Leakage Size Small Leakage Cause Exercise Other Leakage Causes standing Leaks Per Day constant Voiding Frequency every 3-4 hours Nocturia 0-1 Pelvic Clock Inter-Rectal Assessment No tenderness reported with inter-anal assessment Contraction Ability Voluntary Contraction Weak Voluntary Relaxation Weak Manual Muscle Testing Left 3 Manual Muscle Testing Right 3 Manual Muscle Testing Anterior 3 Manual Muscle Testing Posterior 3 Muscle Endurance (Seconds) 5 Number of Quick Contractions In 10 8 Seconds PT-OP-T Assessment and Plan Start: 04/23/19 13:01 Freq: Status: Active Protocol: Document 01/19/20 16:18 AMH (Rec: 01/19/20 16:20 AMH [email or web address]) Physical Therapy Assessment Assessment Summary Assessment Wiliam has not been seen since June due to Covid 19 pandemic. He had been noticing less leakage overall at time of his last PT visit. At this point he will be discharged. I would be happy to restart PT for Wiliam at any time should he need further care. Physical Therapy Plan Discharge Physical Therapy Discharge Reasons No Longer Attending PT Discharge Comments Wiliam has not been seen due to covid 19 pandemic. He will be discharged from PT at this time.
== END 2020-03-28 11:30 ==
LOC: PHYS 09:00
PROVIDERS: PCP Family Medicine; Visit Provider Student in an Organized Health Care Education/Training Program
DX: Z85.46 Personal history of malignant neoplasm of prostate (principal); R39.15 Urgency of urination
CPT/HCPCS: 97110; 97112; 97140; 97162

== ENCOUNTER → 2019-08-10 11:09 | Outpatient (CLI) | payer OTHER, SELFPAY ==
[2019-08-10 11:56] LABS: Add Manual Diff / Slide Review NO; Basophils Absolute Auto 0 /uL (0-100); Basophils Percent Auto 0.8 % (0-2); Eosinophils Absolute Auto 100 /uL (0-450); Eosinophils Percent Auto 1.4 % (2-4); Hematocrit 43.7 % (41-53); Hemoglobin 14.8 g/dL (13.5-17.5); Lymphocytes Absolute Auto 500 /uL (1100-4500); Lymphocytes Percent Auto 12.1 % (25-40); Mean Corpuscular HGB Conc 33.8 % (30-36); Mean Corpuscular Hemoglobin 30.2 PG (26-34); Mean Corpuscular Volume 89.5 fL (80-100); Monocytes Absolute Auto 500 /uL (0-900); Monocytes Percent Auto 11.3 % (3-14); Neutrophils Absolute Auto 3300 /uL (1500-7000); Neutrophils Percent Auto 74.4 % (50-75); Platelet Count 141 X10^3/uL (150-400); Red Blood Cell Count 4.89 X10^6/uL (4.5-5.9); Red Cell Distribution Width 16.7 % (11.6-14.8); White Blood Cell Count 4.4 X10^3/uL (4.5-11.0)
[2019-08-10 12:08] LABS: Erythrocyte Sedimentation Rate 3 MM/HR (0-15)
[2019-08-10 12:28] LABS: Alanine Aminotransferase 29 IU/L (<50); Albumin 3.5 g/dL (3.5-5.0); Albumin Globulin Ratio 1.2 (1.0-2.8); Alkaline Phosphatase 101 U/L (38-126); Aspartate Aminotransferase 39 IU/L (17-59); BUN Creatinine Ratio 23.3 (6-22); Bilirubin Total 0.9 mg/dL (0.2-1.3); Blood Urea Nitrogen 21 mg/dL (9-20); C-Reactive Protein Quant 1.2 mg/dL (<1.0); Calcium 9.3 mg/dL (8.4-10.2); Carbon Dioxide 28 mmol/L (22-32); Chloride 108 mmol/L (98-107); Estimated Glomerular Filt Rate > 60.0 mL/min (>60); Globulin 2.9 g/dL (1.7-4.1); Glucose 86 mg/dL (80-110); HEMOLYSIS < 15 (0-50); Potassium 4.3 mmol/L (3.4-5.1); Sodium 141 mmol/L (137-145); Total Protein 6.4 g/dL (6.3-8.2)
[2019-08-10 13:03] LABS: Prostate Specific Antigen < 0.064 ng/mL (0.10-4.00)
== END ==
PROVIDERS: PCP Internal Medicine; Visit Provider Physician Assistant Medical
DX: C61 Malignant neoplasm of prostate (principal); M06.09 Rheumatoid arthritis without rheumatoid factor, multiple sites
CPT/HCPCS: 36415; 80053; 84153; 85025; 85651; 86140

== ENCOUNTER → 2019-09-02 19:16 | Outpatient (ROUT) | payer OTHER, SELFPAY ==
[2019-09-02 19:33] LABS: Cholesterol 206 mg/dL (140-199); HDL Cholesterol 54 mg/dL (40-60); LDL Cholesterol Calculated 133 mg/dL (<100); Triglycerides 95 mg/dL (35-150)
== END ==
PROVIDERS: PCP Internal Medicine; Visit Provider Internal Medicine
DX: E78.2 Mixed hyperlipidemia (principal)
CPT/HCPCS: 80061

== ENCOUNTER → 2020-01-09 13:54 | Outpatient (CLI) | payer OTHER, SELFPAY ==
[2020-01-10 08:53] LABS: COVID19 Sendout NOT DETECTED (Not Detect)
== END ==
PROVIDERS: PCP Internal Medicine; Visit Provider Physician Assistant
DX: Z01.818 Encounter for other preprocedural examination (principal)
CPT/HCPCS: 87635

== ENCOUNTER 2020-01-12 11:37 | Day surgery (SDC) | payer OTHER, SELFPAY ==
[2020-01-12 12:16] VITALS: BP 132/80; PULSE 57; RESP 16; TEMP 36.3; O2SAT 98; BMI 23.7
[2020-01-12] MEDS: SODIUM CHLORIDE 0.9% 1,000 ML 21 ML IV (12:24)
--- NOTE | 2020-01-12 12:48 | PM.HP.1 ---
History of Present Illness History of Present Illness Date Patient Seen: 01/12/20 Time Patient Seen: 12:48 Chief complaint: [id number] Narrative: Need for colorectal cancer screening. Last colonoscopy 10+ years ago. Patient History Medical History (Updated 06/19/19 @ 15:53 by Leo Torres MD) Osteoarthritis (Chronic Unknown) Osteoporosis (Chronic Unknown) Prostate cancer (Acute ~2014) Rheumatoid arthritis (Chronic Unknown) Squamous cell carcinoma (Resolved ~05/2015) Tremor (Chronic Unknown) Surgical History History of carpal tunnel release (Resolved Unknown) Hx of prostatectomy (Resolved 2014) Hx of tonsillectomy (Resolved Unknown) Family & Social History Family History Father No problems noted. Mother No problems noted. Social History: household members spouse Tobacco & Substance use: Smoking Status Never smoker alcohol intake never Substance Use Type does not use Meds Home Medications and Allergies Home Medications Medication Instructions Recorded Confirmed Type calcium citrate 250 mg PO QAM 12/18/17 01/12/20 History cholecalciferol (vitamin D3) 2,000 unit PO DAILY 12/18/17 01/12/20 History [Vitamin D3] methotrexate 10 mg/m2 PO QWEEK 12/18/17 01/12/20 History vitamin B complex 1 cap PO DAILY 12/18/17 01/12/20 History denosumab 60 mg/mL subcutaneous 60 mg SUBCUT [id number] #1 ml 05/17/19 06/02/19 Rx syringe propranolol 20 mg PO PRN PRN 01/12/20 01/12/20 History rosuvastatin 10 mg PO DAILY 01/12/20 01/12/20 History Allergies Allergy/AdvReac Type Severity Reaction Status Date / Time Iodinated Contrast Media Allergy Mild HOT, ITCHY Verified 01/12/20 12:10 [IODINATED CONTRAST MEDIA - IV DYE] Exam Vital Signs (past 8 hours): - 01/12/20 12:16 Temperature 97.3 F L Pulse Rate 57 L Respiratory Rate 16 Blood Pressure 132/80 Pulse Oximetry 98 Oxygen Delivery Method Room Air Narrative Exam Narrative: Oropharynx free of lesions Chest clear to auscultation percussion Cardiac exam reveals no S3 or murmur Assessment & Plan Assessment & Plan narrative: Need for 10 year screening colonoscopy. Risks, benefits, alternatives have been explained. Further recommendations will follow the results of the study but this may well be his last colonoscopy.
--- NOTE | 2020-01-12 12:49 | PM.OP.ENDO ---
Operative Date/Time/Diagnoses Date of procedure: 01/12/20 Time of procedure: 12:49 Pre-op diagnosis: See indication and findings Procedure & Clinicians Study performed: Colonoscopy Indications: Ten year follow-up colonoscopy. Surgeon: Ary Lay Procedure Notes Procedure in detail: After informed consent was obtained the patient was placed in left lateral decubitus position. The video colonoscope was introduced the rectum and slowly advanced to cecum. Preparation was good. On slow withdrawal mucosa was carefully examined. The scope was removed. The patient tolerated procedure well. Blood loss none Complications none Sedation Total sedation time 14 minutes Versed 4 mg fentanyl 100 mg IV titration Findings 1. Normal colonoscopy to cecum Given his age and -10 year interval colonoscopies this should be Mr. whether his last colonoscopy.
[2020-01-12] MEDS: MIDAZOLAM 5 MG/5 ML VIAL IV (12:57)
[2020-01-12] MEDS: fentaNYL 250 MCG/5 ML INJ IV (12:57)
[2020-01-12 13:15] VITALS: BP 102/70; PULSE 48; RESP 18; TEMP 36.6; O2SAT 96
[2020-01-12 13:19] VITALS: BP 102/72; PULSE 47; RESP 18; O2SAT 94
[2020-01-12 13:24] VITALS: BP 102/69; PULSE 48; RESP 16; O2SAT 92
[2020-01-12 13:30] VITALS: BP 112/78; PULSE 48; RESP 16; O2SAT 94
[2020-01-12 13:35] VITALS: BP 112/77; PULSE 48; RESP 16; TEMP 36.1; O2SAT 97
--- NOTE | 2020-01-12 13:42 | SUR.PHASEII ---
Pt states he feels fine. No complaints of pain. Pt had two apple juices. Pt to be discharged with . Talia.
== END 2020-01-12 13:48 | disposition home or self-care (01) ==
PROVIDERS: PCP Internal Medicine; Referring Provider Internal Medicine Gastroenterology; Visit Provider Internal Medicine Gastroenterology
PROC: 0DJD8ZZ Inspection of Lower Intestinal Tract, Via Natural or Artificial Opening Endoscopic (ICD-10-PCS; CPT 45378; principal; 2020-01-12 13:00)
DX: Z12.11 Encounter for screening for malignant neoplasm of colon (principal)
CPT/HCPCS: G0121; J2250; J3010

== ENCOUNTER → 2020-02-18 13:36 | Outpatient (CLI) | payer OTHER, SELFPAY ==
[2020-02-18 16:53] LABS: Prostate Specific Antigen < 0.064 ng/mL (0.10-4.00)
== END ==
PROVIDERS: PCP Internal Medicine; Referring Provider Radiology Radiation Oncology; Visit Provider Radiology Radiation Oncology
DX: Z85.46 Personal history of malignant neoplasm of prostate (principal)
CPT/HCPCS: 36415; 84153

== ENCOUNTER → 2020-11-07 16:20 | Outpatient (CLI) | payer OTHER, SELFPAY ==
[2020-11-07 18:02] LABS: Prostate Specific Antigen < 0.064 ng/mL (0.10-4.00)
== END ==
PROVIDERS: PCP Internal Medicine; Referring Provider Internal Medicine; Visit Provider Internal Medicine
DX: C61 Malignant neoplasm of prostate (principal)
CPT/HCPCS: 36415; 84153

== ENCOUNTER → 2020-11-22 18:57 | Outpatient (ROUT) | payer OTHER, SELFPAY ==
[2020-11-22 19:30] LABS: Aspartate Aminotransferase 37 IU/L (17-59); BUN Creatinine Ratio 30.7 (6-22); Blood Urea Nitrogen 27 mg/dL (9-20); Calcium 9.2 mg/dL (8.4-10.2); Carbon Dioxide 29 mmol/L (22-32); Chloride 106 mmol/L (98-107); Cholesterol 133 mg/dL (140-199); Estimated Glomerular Filt Rate > 60.0 mL/min (>60); Glucose 85 mg/dL (80-110); HDL Cholesterol 56 mg/dL (40-60); HEMOLYSIS 16 (0-50); LDL Cholesterol Calculated 63 mg/dL (<100); Potassium 4.4 mmol/L (3.4-5.1); Sodium 141 mmol/L (137-145); Triglycerides 68 mg/dL (35-150)
== END ==
PROVIDERS: PCP Internal Medicine; Visit Provider Internal Medicine
DX: M06.9 Rheumatoid arthritis, unspecified (principal); E78.2 Mixed hyperlipidemia
CPT/HCPCS: 80048; 80061; 84450

== ENCOUNTER 2021-10-07 16:13 | Emergency (ER) | payer OTHER, SELFPAY ==
[2021-10-07 16:20] VITALS: BP 189/98; PULSE 50; RESP 20; TEMP 36.4; O2SAT 99
--- NOTE | 2021-10-07 18:31 | ED_ITS ---
HPI - Skin/Abscess/Foreign Bdy <Waldo Esparza PA-C - Last Filed: 10/07/21 18:31> General Chief complaint: Skin/Abscess/Foreign Body Stated complaint: Plantar fasciitis, swollen right foot and ankle, i Time Seen by Provider: 10/07/21 18:30 Source: patient Mode of arrival: Ambulatory Related Data Home Medications Medication Instructions Recorded Confirmed calcium citrate 250 mg PO QAM 12/18/17 01/12/20 cholecalciferol (vitamin D3) 50 2,000 unit PO DAILY 12/18/17 01/12/20 mcg (2,000 unit) tablet (Vitamin D3) methotrexate 2.5 mg/mL oral 10 mg/m2 PO QWEEK 12/18/17 01/12/20 solution vitamin B complex 1 cap PO DAILY 12/18/17 01/12/20 propranolol 20 mg tablet 20 mg PO PRN PRN 01/12/20 01/12/20 rosuvastatin 10 mg tablet 10 mg PO DAILY 01/12/20 01/12/20 Previous Rx's Medication Instructions Recorded denosumab 60 mg/mL subcutaneous 60 mg SUBCUT [id number] #1 ml 05/17/19 syringe (Prolia) cephalexin 500 mg capsule 500 mg PO BID 7 Days #14 cap 10/07/21 Allergies Allergy/AdvReac Type Severity Reaction Status Date / Time Iodinated Contrast Media Allergy Mild HOT, ITCHY Verified 01/12/20 12:10 [IODINATED CONTRAST MEDIA - IV DYE] <Sherron Stacy DO - Last Filed: 10/08/21 05:48> History of Present Illness HPI narrative: Patient is 76-year-old male who has a history of rheumatoid arthritis on methotrexate once a week presenting today with right ankle swelling and redness. He actually had blood work done 3 days ago. He started having some discomfort 4 days ago. But today noticed redness. He had outpatient blood work he was able to pull up on ?my chart ?he said his ESR and CRP were normal he was unable to remember with the CDC was. He does not ever remember being told he was neutropenic. He has not had fever or chills. He is worried that he might have a blood clot. He is supposed to travel to [place] in 2 days. He does have an appointment with his concrete pointer tomorrow. He has noted that the swelling has gone down throughout the day. His <Sherron Stacy DO - Last Filed: 10/08/21 05:48> Review of Systems Narrative: GENERAL: Denies chills, fatigue, malaise, fever, sweats, travel HEENT: Denies sinus pain, ear pain, sore throat, difficulty swallowing, neck pain RESPIRATORY: Denies dyspnea, cough, wheezing, hemoptysis, sputum. CARDIOVASCULAR: Denies chest pain, palpitations, orthopnea, edema GASTROINTESTINAL: Denies nausea, vomiting, abdominal pain, diarrhea, constipation, melena. : Denies dysuria, frequency, incontinence, hematuria, urinary retention, flank pain. MUSCULOSKELETAL: See HPI SKIN: See HPI NEUROLOGIC: Denies weakness, dizziness, headache, numbness, change in speech, confusion PSYCHIATRIC: No concerning psychosocial issues. 12 point review of systems is negative except for those stated above and HPI Patient History <Waldo Esparza PA-C - Last Filed: 10/07/21 18:31> Medical History (Updated 10/07/21 @ 19:58 by Sherron Stacy DO) Osteoarthritis (Unknown) Osteoporosis (Unknown) Prostate cancer (~2014) Rheumatoid arthritis (Unknown) Squamous cell carcinoma (~05/2015) Tremor (Unknown) Surgical History History of carpal tunnel release (Unknown) Hx of prostatectomy (2014) Hx of tonsillectomy (Unknown) Family History Father No problems noted. Mother No problems noted. Social History household members: spouse Smoking Status: Never smoker alcohol intake: never Smoking Status: Never smoker Substance Use Type: does not use Exam <Waldo Esparza PA-C - Last Filed: 10/07/21 18:31> Initial Vital Signs Initial Vital Signs: Vital Signs Temperature 97.5 F L 10/07/21 16:20 Pulse Rate 50 L 10/07/21 16:20 Respiratory Rate 20 10/07/21 16:20 Blood Pressure 189/98 H 10/07/21 16:20 Pulse Oximetry 99 10/07/21 16:20 <Sherron Stacy DO - Last Filed: 10/08/21 05:48> Initial Vital Signs Initial Vital Signs: Vital Signs Temperature 97.5 F L 10/07/21 16:20 Pulse Rate 50 L 10/07/21 16:20 Respiratory Rate 20 03/20/22 16:20 Blood Pressure 189/98 H 10/07/21 16:20 Pulse Oximetry 99 10/07/21 16:20 GENERAL: Alert well-appearing 76-year-old male in no acute distress. HEENT: Head atraumatic,EOMI, pupils reactive, face symmetric, moist mucous membranes CARDIOVASCULAR: Regular rate and rhythm without murmurs, rubs or gallops. RESPIRATORY: Breath sounds equal bilaterally, no wheezes rales or rhonchi. : No CVA tenderness EXTREMITIES: Normal range of motion, no clubbing or edema. Neurovascularly intact NEUROLOGICAL: Alert and oriented x4.Normal gait and speech. SKIN: Mild right medial erythema. Possible slight streaking up the leg it is non circumferential it is warm to the touch. Dry skin noted on the heel no obvious cracks. Right leg is definitely more swollen than Course <Waldo Esparza PA-C - Last Filed: 10/07/21 18:31> Orders Ordered: Discontinued Medications Cefazolin Sodium (Cephalexin 250 Mg Prepack) 1 bottle MISC SEEINSTR ONE Stop: 10/07/21 20:00 Last Admin: 10/07/21 20:16 Dose: 2 cap Documented by: ZHAO Vital Signs Vital signs: Vital Signs - 8 hr 10/07/21 16:20 Temperature 97.5 F L Pulse Rate 50 L Respiratory Rate 20 Blood Pressure 189/98 H Pulse Oximetry 99 <Sherron Stacy DO - Last Filed: 10/08/21 05:48> Orders Ordered: Discontinued Medications Cefazolin Sodium (Cephalexin 250 Mg Prepack) 1 bottle MISC SEEINSTR ONE Stop: 10/07/21 20:00 Last Admin: 10/07/21 20:16 Dose: 2 cap Documented by: ZHAO Vital Signs Vital signs: Vital Signs - 8 hr 10/07/21 16:20 Temperature 97.5 F L Pulse Rate 50 L Respiratory Rate 20 Blood Pressure 189/98 H Pulse Oximetry 99 <Sherron Stacy DO - Last Filed: 10/08/21 05:48> Imaging Data US - DVT: Radiologist's Impression: PROCEDURE:? US PERIPH VENOUS LOW EXTREM RT ? INDICATIONS:? PAIN, EDEMA ? TECHNIQUE:? Real-time imaging, as well as color and pulse Doppler interrogation, were performed of the lower extremity deep veins from the inguinal ligament to the popliteal fossa.? ? COMPARISON:? None. ? FINDINGS:? The common femoral, femoral and popliteal veins are normally compressible, and free of intraluminal thrombus.? Color and pulse Doppler demonstrate normal phasic intraluminal flow.? There is normal augmentation response to distal compression maneuver. ? ? Trace edema at the medial ankle subcutaneous tissues. ? IMPRESSION:? ? 1. No DVT in the right lower extremity. ? 2. Trace subcutaneous edema at the ankle.? ? ? Dictated by: Cris Obregon M.D. on 10/07/2021 at 19:34 ? [facility] Narrative Medical decision making narrative: Unable to see blood work from [facility]. He is offered repeat blood work today however declines at this time since he will be seeing his route concrete pointer tomorrow. He has not had any fever or chills he has some mild erythema on his right ankle. DVT study is negative. Will start him on in antibiotics for cellulitis. Overall appears well he is afebrile his vitals are stable he is not septic at this time. Discharge Plan Departure Patient Disposition: Home Clinical Impression: Cellulitis Instructions: DI for Cellulitis -- Adult Activity Restrictions/Additional Instructions: *You have been diagnosed with cellulitis right leg *What to do: Please monitor very carefully for any worsening swelling or redness or fever greater than 100.4. He may go to any emergency department in a [place] state at any time if this should worsen. *Continue to take medications as directed *Follow up with your primary care provider in 2-3 days or call [phone] *Return to ER if you should have increasing redness pain or swelling, or any new, worsening or concerning symptoms Prescriptions: New cephalexin 500 mg capsule 500 mg PO BID 7 Days Qty: 14 0RF No Action Prolia 60 mg/mL syringe 60 mg SUBCUT [id number] Qty: 1 1RF Hold Instructions: 6month holiday vitamin B complex Capsule 1 cap PO DAILY 0RF calcium citrate 250 mg calcium Tablet 250 mg PO QAM 0RF cholecalciferol (vitamin D3) [Vitamin D3] 2,000 unit Tablet 2,000 unit PO DAILY 0RF methotrexate 2.5 mg/mL Solution 10 mg/m2 PO QWEEK 0RF propranolol 20 mg Tablet 20 mg PO PRN PRN (Reason: Tremor(S)) 0RF rosuvastatin 10 mg Tablet 10 mg PO DAILY 0RF Referrals: Darek Krishna MD [Primary Care Provider] -
--- NOTE | 2021-10-07 18:44 | DI.US.S_ITS ---
PROCEDURE: US PERIPH VENOUS LOW EXTREM RT INDICATIONS: PAIN, EDEMA TECHNIQUE: Real-time imaging, as well as color and pulse Doppler interrogation, were performed of the lower extremity deep veins from the inguinal ligament to the popliteal fossa. COMPARISON: None. FINDINGS: The common femoral, femoral and popliteal veins are normally compressible, and free of intraluminal thrombus. Color and pulse Doppler demonstrate normal phasic intraluminal flow. There is normal augmentation response to distal compression maneuver. Trace edema at the medial ankle subcutaneous tissues. IMPRESSION: 1. No DVT in the right lower extremity. 2. Trace subcutaneous edema at the ankle. Dictated by: Cris Obregon M.D. on 10/07/2021 at 19:34 Approved by: Cris Obregon M.D. on 10/07/2021 at 19:34
[2021-10-07] MEDS: cephALEXin 250 MG PREPACK 1 BOTTLE MISC (20:16)
== END 2021-10-07 20:20 | disposition home or self-care (01) ==
PROVIDERS: Emergency Provider Emergency Medicine; PCP Internal Medicine
DX: L03.115 Cellulitis of right lower limb (principal)
CPT/HCPCS: 93971; 99283; 99284

== ENCOUNTER → 2021-10-25 14:24 | Outpatient (CLI) | payer OTHER, SELFPAY ==
--- NOTE | 2021-10-25 14:26 | DI.MRI.S_ITS ---
PROCEDURE: MR ANKLE RT WO/W CON INDICATIONS: RHEUMATOID ARTHRITIS TECHNIQUE: Noncontrast sagittal T1 spin echo and T2 fast spin echo with fat saturation, axial proton density fast spin echo and T2 fast spin echo with fat saturation, axial T1 spin echo with fat saturation, coronal T1 spin echo and T2 fast spin echo with fat saturation through the ankle/hindfoot. Post-contrast axial, coronal, and sagittal T1 spin echo with fat saturation through the ankle/hindfoot. COMPARISON: None. FINDINGS: Image quality: Excellent. Bones and joints: Diffuse ankle soft tissue swelling and edema is noted. Mild osteoarthritic changes are seen in midfoot and hindfoot joints with joint space narrowing and subchondral sclerosis. Small subcortical cyst formation in superior calcaneus weight-bearing portion is noted without cortical disruption. No suspicious osseous enhancement. No bone marrow contusions or fractures. No hindfoot coalitions. No osteochondral injuries of the talar dome. No pathologic joint effusions. Small plantar and dorsal calcaneal enthesophytes are seen. Medial structures: The posterior tibialis, flexor digitorum longus, and flexor hallucis longus tendons are intact. The posterior tibial neurovascular bundle appears normal within the tarsal tunnel, without extrinsic mass effect. The deep layer (anterior and posterior tibiotalar ligaments) and superficial layer (tibionavicular, tibiospring, and tibiocalcaneal ligaments) of the deltoid ligament appear normal. The spring ligament components (superomedial calcaneonavicular, medioplantar oblique calcaneonavicular, and inferoplantar longitudinal ligaments) are intact. Lateral structures: The anterior talofibular, calcaneofibular, and posterior talofibular ligaments appear intact. More superiorly, the anterior and posterior tibiofibular ligaments appear intact, as is the intermalleolar ligament. The tibiofibular syndesmosis is normal in width at 2 mm or less. The peroneus longus and brevis tendons demonstrate normal location and morphology. Adjacent bony peroneal tubercle and retrotrochlear prominence are normal in size. The sinus tarsi demonstrates normal fatty signal, without edema, fibrosis, or cyst formation. Visualized sinus tarsi components (cervical ligament, interosseous talocalcaneal ligament, roots of the inferior extensor retinaculum) appear normal. The calcaneonavicular and calcaneocuboid components of the bifurcate ligament appear intact. The dorsal calcaneocuboid ligament appears intact. Anterior structures: The tibialis anterior, extensor hallucis longus, and extensor digitorum longus tendons appear intact. The dorsal talonavicular ligament appears intact. Posterior and plantar structures: Very mild distal Achilles tendinosis at its posterior calcaneal insertion is seen. No Achilles tendon rupture.. Medial and lateral bands of the plantar fascia are of normal thickness. No abductor digiti quinti muscle atrophy to suggest Fuentes neuropathy. IMPRESSION: 1. Diffuse ankle soft tissue swelling and edema. No discrete drainable fluid collection. 2. Mild midfoot and hindfoot joint osteoarthritis. No fracture or dislocation. No abnormal intraosseous enhancement. No suspicious intraosseous lesion. No osteochondral injury of talar dome. No evidence of bony erosive changes. 3. Small dorsal and plantar calcaneal enthesophytes. Plantar fascia is intact. Possible very mild distal Achilles tendinosis at its posterior calcaneal insertion. No Achilles tendon rupture. 4. Extensor, flexor, and peroneus tendons are intact. No signs of tenosynovitis. 5. Medial and lateral ankle ligaments are intact. Dictated by: Sudeep Chavez M.D. on 10/25/2021 at 16:13 Approved by: Sudeep Chavez M.D. on 10/25/2021 at 17:22
== END ==
PROVIDERS: PCP Internal Medicine; Referring Provider Physician Assistant Medical; Visit Provider Physician Assistant Medical
DX: M06.09 Rheumatoid arthritis without rheumatoid factor, multiple sites (principal); M79.89 Other specified soft tissue disorders; M77.31 Calcaneal spur, right foot; M19.071 Primary osteoarthritis, right ankle and foot
CPT/HCPCS: 73723

== ENCOUNTER → 2022-03-05 10:42 | Outpatient (CLI) | payer OTHER, SELFPAY ==
[2022-03-05 12:54] LABS: COVID19 -Nasal RAPID Negative (Negative)
== END ==
PROVIDERS: PCP Internal Medicine; Visit Provider Surgery
DX: Z20.822 Contact with and (suspected) exposure to COVID-19 (principal); Z01.812 Encounter for preprocedural laboratory examination
CPT/HCPCS: 87635; C9803

== ENCOUNTER 2022-03-06 13:55 | Day surgery (SDC) | payer OTHER, SELFPAY ==
[2022-03-05 07:28] VITALS: BMI 23.1
[2022-03-06 14:13] VITALS: BP 148/83; PULSE 48; RESP 100; TEMP 36.4; BMI 21.9
--- NOTE | 2022-03-06 14:20 | PM.PREOP ---
Pre-operative Note Interval Note History & Physical reviewed/Exam performed by Physician: Yes Changes to H&P: No
[2022-03-06 14:28] VITALS: BMI 21.9
[2022-03-06] MEDS: LACTATED RINGERS 1,000 ML 100 ML IV (14:30)
[2022-03-06] MEDS: CEFAZOLIN 2 GM/100 ML PREMIX 100 ML IV (14:57)
--- NOTE | 2022-03-06 15:07 | SUR.OPER ---
Patient removed his penile clamp, has small amount of metal present, removed gold colored jewelry band from left ring finger and glasses, all placed in his belongings bag in pre-op area.
--- NOTE | 2022-03-06 15:08 | SUR.OPER ---
Supine on padded OR bed, head on pillow, arms secured on padded arm boards at <90 degrees abduction, legs uncrossed, safety belt at thigh, tape over blanket over lower legs. Gel pad placed under bilateral heels.
[2022-03-06] MEDS: BUPIVACAINE 0.25% (PF) VIAL 30 ML INJ (15:13)
[2022-03-06] MEDS: ACETAMINOPHEN IV 1,000 MG/100 ML VIAL 400 MG IV (15:19)
--- NOTE | 2022-03-06 15:45 | PM.OP.1 ---
Operative Date/Time/Diagnoses Date of procedure: 03/06/22 Time of procedure: 15:45 Pre-op diagnosis: Left inguinal hernia Post-op diagnosis: same Procedure & Clinicians Procedure: Open left inguinal hernia repair with mesh Same procedure as scheduled: Yes Indications: Symptomatic reducible left inguinal hernia Surgeon: Natan Tomas Yes if Unassisted: Yes Anesthesia Type: General Operative Notes Findings: Moderate indirect size hernia. No direct floor defect. Specimen(s): none sent Estimated Blood Loss (mL): 20 Procedure in detail: The patient was placed supine on the table and bilateral lower extremity compression devices were applied. Anesthesia was induced they were intubated with an LMA and received Ancef. A time-out was performed. They were prepped and draped in sterile fashion. The left external inguinal ring and the anterior superior iliac crest were identified and marked. 1 finger breath above the inguinal ligament the skin was infiltrated with 0.25% bupivacaine. The skin incision was made here and the subcutaneous tissues were divided with electrocautery exposing the external oblique aponeurosis which was then opened along the direction of its fibers. Using blunt dissection the internal oblique aporneurosis was from the external oblique upper leaflet to identify the iliohypogastric nerve. Using a kittner the cord was carefully dissected away from the inguinal canal adjacent to the pubic tubercle. The cord including the vas deferens, testicular bloody supply, ilioguinal and genital nerve were encircled with a Felipa drain. No direct floor defect was identified. The cremasteric fibers surrounding the cord were divided using electrocautery adjacent to the internal ring.. The vas deferens and the testicular vessels were preserved and protected. There was a moderate indirect hernia on the anterior medial aspect of the cord which was skeletonized away from the vas deferens and testicular blood supply. The indirect hernia was skeletonized back to the internal ring and reduced spontaneously into the abdomen. I selected a 7x 15 cm lightweight Pro Loop hernia mesh. The inferior medial aspect of the mesh was anchored to insertion of the rectus muscle to the pubic tubercle such that there was approximately 2 cm of tubercle overlap with Ethibond and then was run continuously along the inferior edge of the mesh to the shelving edge of the inguinal ligament. Interrupted 3 0 Vicryl suture was used to anchor the superior aspect of the mesh to the conjoined tendon in several places. The tails were then reapproximated loosely around the spermatic cord. The tails of the mesh were then tucked under the external oblique aponeurosis. The repair was checked for hemostasis. The wound was irrigated with sterile saline. The external oblique aponeurosis was reapproximated in a running fashion using 3 0 Vicryl. The subcutaneous tissues were reapproximated with 3 0 Vicryl skin closed with 4 0 Monocryl followed by the application of Dermabond. At the end of the operation I ensured that both testicles were within the scrotum. The sponge instrument count at the end operation was correct. The patient emerged from anesthesia was extubated and transferred to the postoperative care unit in stable condition. A total of 30 ml of of 0.25% bupivicaine was used to infiltrate the skin. Complications: none Post-operative Condition: stable Disposition: same day surgery
[2022-03-06 15:47] VITALS: BP 109/66; PULSE 52; RESP 13; TEMP 36; O2SAT 96
[2022-03-06 15:52] VITALS: BP 97/60; PULSE 52; RESP 15; O2SAT 95
[2022-03-06 15:57] VITALS: BP 96/66; PULSE 50; RESP 15; O2SAT 98
[2022-03-06 16:02] VITALS: BP 105/70; PULSE 48; RESP 17; O2SAT 97
[2022-03-06 16:05] VITALS: BP 112/69; PULSE 49; RESP 14; O2SAT 97
== END 2022-03-06 16:31 | disposition home or self-care (01) ==
PROVIDERS: PCP Internal Medicine; Referring Provider Surgery; Visit Provider Surgery
PROC: (CPT 49505; principal; 2022-03-06 13:15)
DX: K40.90 Unilateral inguinal hernia, without obstruction or gangrene, not specified as recurrent (principal)
CPT/HCPCS: 49505; 00830; 82962; J0131; J0690; J1170; J1885; J2405; J2704

== ENCOUNTER → 2022-07-04 09:09 | Outpatient (CLI) | payer OTHER, SELFPAY | PROVIDERS: PCP Internal Medicine; Referring Provider Physician Assistant; Visit Provider Surgery | DX: S61.401A Unspecified open wound of right hand, initial encounter (principal) | CPT/HCPCS: 99202; 99213 ==

== ENCOUNTER → 2022-10-28 14:31 | Outpatient (CLI) | payer OTHER, SELFPAY ==
[2022-10-28 15:22] LABS: Aspartate Aminotransferase 32 IU/L (17-59); BUN Creatinine Ratio 26.5 (6-22); Blood Urea Nitrogen 27 mg/dL (9-20); Calcium 9.1 mg/dL (8.4-10.2); Carbon Dioxide 29 mmol/L (22-32); Chloride 104 mmol/L (98-107); Cholesterol 159 mg/dL (140-199); Estimated Glomerular Filt Rate > 60 mL/min (>60); Glucose 79 mg/dL (80-110); HDL Cholesterol 65 mg/dL (40-60); HEMOLYSIS < 15 (0-50); LDL Cholesterol Calculated 79 mg/dL (<100); Potassium 4.4 mmol/L (3.4-5.1); Sodium 138 mmol/L (137-145); Triglycerides 74 mg/dL (35-150)
[2022-10-28 16:00] LABS: Prostate Specific Antigen < 0.064 ng/mL (0.10-4.00)
[2022-10-28 16:11] LABS: Vitamin B12 873 pg/mL (239-931)
[2022-10-29 08:36] LABS: x Labcorp Estim. Avg Glu (eAG) 117 mg/dL (.); x Labcorp Hemoglobin A1c 5.7 % (4.8-5.6)
[2022-10-30 15:55] LABS: Albumin 3.4 g/dL (2.9-4.4); Alpha-1-Globulin 0.3 g/dL (0.0-0.4); Alpha-2-Globulin 0.6 g/dL (0.4-1.0); Globulin Total 2.6 g/dL (2.2-3.9)
== END ==
PROVIDERS: PCP Internal Medicine; Referring Provider Internal Medicine; Visit Provider Internal Medicine
DX: R32 Unspecified urinary incontinence; R73.01 Impaired fasting glucose; E78.2 Mixed hyperlipidemia; N39.0 Urinary tract infection, site not specified; Z85.46 Personal history of malignant neoplasm of prostate; R77.8 Other specified abnormalities of plasma proteins; E53.8 Deficiency of other specified B group vitamins
CPT/HCPCS: 36415; 80048; 80061; 82607; 83036; 84153; 84155; 84165; 84450

== ENCOUNTER → 2022-12-20 08:33 | Outpatient (CLI) | payer OTHER, SELFPAY ==
[2022-12-20 09:34] LABS: Add Manual Diff / Slide Review NO; Basophils Absolute Auto 0 /uL (0-100); Basophils Percent Auto 0.6 % (0-2); Eosinophils Absolute Auto 100 /uL (0-450); Hematocrit 40.6 % (41-53); Hemoglobin 13.8 g/dL (13.5-17.5); Lymphocytes Absolute Auto 700 /uL (1100-4500); Lymphocytes Percent Auto 16.8 % (25-40); Mean Corpuscular Hemoglobin 30.7 PG (26-34); Mean Corpuscular Volume 90.5 fL (80-100); Monocytes Absolute Auto 200 /uL (0-900); Monocytes Percent Auto 4.5 % (3-14); Neutrophils Absolute Auto 3300 /uL (1500-7000); Neutrophils Percent Auto 76.1 % (50-75); Platelet Count 140 X10^3/uL (150-400); Red Blood Cell Count 4.48 X10^6/uL (4.5-5.9); Red Cell Distribution Width 16.9 % (11.6-14.8); White Blood Cell Count 4.4 X10^3/uL (4.5-11.0)
[2022-12-20 09:52] LABS: Alanine Aminotransferase 39 IU/L (<50); Albumin 3.4 g/dL (3.5-5.0); Albumin Globulin Ratio 1.4 (1.0-2.8); Alkaline Phosphatase 87 U/L (38-126); Aspartate Aminotransferase 32 IU/L (17-59); BUN Creatinine Ratio 22.6 (6-22); Bilirubin Total 1.1 mg/dL (0.2-1.3); Blood Urea Nitrogen 21 mg/dL (9-20); C-Reactive Protein Quant < 0.5 mg/dL (<1.0); Calcium 8.2 mg/dL (8.4-10.2); Carbon Dioxide 29 mmol/L (22-32); Chloride 105 mmol/L (98-107); Erythrocyte Sedimentation Rate 3 MM/HR (0-15); Estimated Glomerular Filt Rate > 60 mL/min (>60); Globulin 2.4 g/dL (1.7-4.1); Glucose 113 mg/dL (80-110); HEMOLYSIS < 15 (0-50); Sodium 137 mmol/L (137-145); Total Protein 5.8 g/dL (6.3-8.2)
== END ==
PROVIDERS: PCP Internal Medicine; Referring Provider Physician Assistant Medical; Visit Provider Physician Assistant Medical
DX: M05.09 Felty's syndrome, multiple sites (principal)
CPT/HCPCS: 36415; 80053; 85025; 85651; 86140

== ENCOUNTER → 2022-12-26 15:03 | Outpatient (CLI) | payer OTHER, SELFPAY ==
[2022-12-26 16:28] LABS: BUN Creatinine Ratio 26.7 (6-22); Blood Urea Nitrogen 28 mg/dL (9-20); Calcium 8.5 mg/dL (8.4-10.2); Carbon Dioxide 29 mmol/L (22-32); Chloride 104 mmol/L (98-107); Estimated Glomerular Filt Rate > 60 mL/min (>60); Glucose 94 mg/dL (80-110); HEMOLYSIS < 15 (0-50); Potassium 4.5 mmol/L (3.4-5.1); Sodium 138 mmol/L (137-145)
== END ==
PROVIDERS: PCP Internal Medicine; Referring Provider Urology; Visit Provider Urology
DX: N39.0 Urinary tract infection, site not specified (principal); R32 Unspecified urinary incontinence; R39.13 Splitting of urinary stream; R39.198 Other difficulties with micturition; Z85.46 Personal history of malignant neoplasm of prostate; Z92.3 Personal history of irradiation
CPT/HCPCS: 36415; 51798; 80048; 81002; 99214

== ENCOUNTER → 2023-01-02 12:25 | Outpatient (CLI) | payer OTHER, SELFPAY ==
--- NOTE | 2023-01-02 12:26 | DI.CT.S_ITS ---
PROCEDURE: CT ABDOMEN PELVIS WO/W CON INDICATIONS: Recurring urinary tract infections, history of prostate canc TECHNIQUE: Optional 5 mm thick noncontrast images acquired from the diaphragm to the symphysis pubis. After the administration of intravenous contrast, 5 mm thick images acquired from the diaphragm to the symphysis pubis after a 10-minute delay. 2 mm thick coronal and sagittal reformats were then performed of the kidneys and ureters. For radiation dose reduction, the following was used: automated exposure control, adjustment of mA and/or kV according to patient size. COMPARISON: None. FINDINGS: Image quality: Excellent. Lung bases: Lung bases are clear. Heart size is normal. Urinary system: Both kidneys are normal in size, without hydronephrosis or nephrolithiasis on pre-contrast images. No perinephric fat stranding. There is normal bilateral renal enhancement. Renal calyces appear normal in morphology when filled with contrast. Opacified portions of both ureters demonstrate normal caliber. Bladder wall thickness is normal. No calcified bladder stones. Liver: No solid mass. Calcified granuloma. Gallbladder and biliary tree: Contracted. Spleen: Calcified granuloma. Pancreas: No ductal dilation. Adrenal glands: No adrenal nodules. Peritoneum and bowel: Bowel loops demonstrate normal wall thickness and caliber. No free fluid or air. Nodes and vessels: No retroperitoneal or mesenteric adenopathy by size criteria. Aorta and inferior vena cava are normal in size. Abdominal wall: No ventral hernias. Pelvis: No pathologic free pelvic fluid. No inguinal hernias or adenopathy. Prostatectomy. Bones: No suspicious bony lesions. No vertebral body compression fractures. IMPRESSION: No nephrolithiasis or filling defect within the opacified renal collecting system or ureters. Dictated by: Nando Jones M.D. on 01/02/2023 at 14:26 Approved by: Nando Jones M.D. on 01/02/2023 at 15:23
== END ==
PROVIDERS: PCP Internal Medicine; Referring Provider Urology; Visit Provider Urology
DX: N39.0 Urinary tract infection, site not specified (principal); Z85.46 Personal history of malignant neoplasm of prostate
CPT/HCPCS: 74178; Q9967

== ENCOUNTER → 2023-01-24 10:49 | Outpatient (CLI) | payer OTHER, SELFPAY | PROVIDERS: PCP Internal Medicine; Visit Provider Urology | DX: N39.0 Urinary tract infection, site not specified (principal) | CPT/HCPCS: 87086 ==

== ENCOUNTER 2023-02-13 19:09 | Emergency (ER) | payer OTHER, SELFPAY ==
[2023-02-13 19:21] VITALS: BP 131/78; PULSE 53; RESP 16; TEMP 36.6; O2SAT 99; BMI 23.1
[2023-02-13 19:36] LABS: Appearance Urine UA CLOUDY; Bilirubin Urine UA 1+ (NEGATIVE); Color Urine UA RED; Glucose Urine UA TRACE g/dL (Negative); Ketones Urine UA 1+ (NEGATIVE); Leukocyte Esterase Urine UA 2+ (NEGATIVE); Nitrite Urine UA POSITIVE (Negative); Occult Blood Urine UA 3+ (Negative); Protein Urine UA 3+ (Negative); pH Urine UA 7.5 (4.5-8.0)
[2023-02-13 19:43] LABS: Bacteria Urine Few (2-10); Culture Indicated Urine Specimen Cultured; RBC Urine >100/HPF (0-5/HPF); Squamous Epithelial Cell Urine None Seen (0-5/HPF); WBC Urine 5-10/HPF (0-5/HPF)
[2023-02-13 19:44] LABS: Ictotest Urine Negative (Negative)
[2023-02-13 20:33] VITALS: BP 150/73; PULSE 61; RESP 18; TEMP 37.1; O2SAT 99
--- NOTE | 2023-02-13 20:35 | PC.NURSE ---
Pt also reports to have had episodes of lumbar pain intermittent through out the day. Worse with the process of sitting and standing.
--- NOTE | 2023-02-13 21:12 | ED.MALEGU ---
HPI - Male Genitourinary General Chief complaint: Urogenital-Male Stated complaint: blood in urine Time Seen by Provider: 02/13/23 21:10 Source: patient Mode of arrival: Ambulatory History of Present Illness HPI Narrative: Patient is a [age] year old male history of TURP, essential tremors presenting today with sudden onset of bloody urine. He is provided a sample that is grossly bloody with a large blood. He feels like he is going to the bathroom every few minutes. He was fine earlier in the day. He has been flank pain. No nausea vomiting or significant abdominal pain. According to records he saw Dr. Olmos on January 15 2023 actually had a flexible cystoscopy for UTI incontinence and splitting in spring of urinary stream. Related Data Home Medications Medication Instructions Recorded Confirmed calcium citrate 250 mg PO QAM 12/18/17 01/15/23 cholecalciferol (vitamin D3) 50 2,000 unit PO DAILY 12/18/17 01/15/23 mcg (2,000 unit) tablet (Vitamin D3) vitamin B complex 1 cap PO DAILY 12/18/17 01/15/23 folic acid 1 mg tablet 1 mg PO DAILY 02/08/22 01/15/23 carboxymethylcellulose 0.5 1 drp EYE-BOTH QID Dry eyes 10/28/22 01/15/23 %-glycerin 0.9 % eye drops (Refresh Optive) omega 8-ltb-xqw-fish oil 1,000 mg 1 cap PO TID 10/28/22 01/15/23 (120 mg-180 mg) capsule (Fish Oil) methotrexate sodium 2.5 mg tablet 20 mg PO QWEEK 01/15/23 01/15/23 Previous Rx's Medication Instructions Recorded denosumab 60 mg/mL subcutaneous 60 mg SUBCUT [id number] #1 mL 05/17/19 syringe (Prolia) ibuprofen 200 mg tablet 400 mg PO Q6H #60 tabs 03/06/22 primidone 50 mg tablet 50 mg PO BEDTIME #90 tabs 10/28/22 propranolol 20 mg tablet 20 mg PO DAILY PRN Tremor(S) #90 10/28/22 tabs rosuvastatin 10 mg tablet 10 mg PO DAILY #90 tabs 10/28/22 nitrofurantoin 100 mg PO BID #10 caps 01/24/23 monohydrate/macrocrystals 100 mg capsule cephalexin 500 mg capsule 500 mg PO BID 7 days #14 caps 02/13/23 Allergies Allergy/AdvReac Type Severity Reaction Status Date / Time Iodinated Contrast Media Allergy Mild HOT, ITCHY Verified 01/15/23 09:51 [IODINATED CONTRAST MEDIA - IV DYE] Review of Systems Review of Systems ROS Unobtainable: All systems reviewed & are unremarkable except as noted in HPI and below Patient History Medical History Age-related osteoporosis without current pathological fracture Allergic rhinitis Arthritis COVID-19 virus infection (12/01/21) Eczematous dermatitis Elevated cholesterol Epistaxis Essential tremor Headache, migraine History of prostate cancer History of radiation therapy Mixed hyperlipidemia Osteoarthritis (Unknown) Osteoporosis (Unknown) Polyneuropathy, unspecified Primary osteoarthritis involving multiple joints Recurrent UTI Rheumatoid arthritis, seronegative, multiple sites Squamous cell carcinoma (~05/2015) Tremor (Unknown) Urinary incontinence Venous (peripheral) insufficiency Surgical History History of carpal tunnel release (05/31/14) Hx of prostatectomy (2014) Hx of tonsillectomy (~1949) Hx of vitrectomy (10/2011) Family History Father No problems noted. Mother No problems noted. Social History details: (Talia) household members: spouse Smoking Status: Former smoker alcohol intake: never Smoking Status: Former smoker Substance Use Type: does not use Exam Initial Vital Signs Initial Vital Signs: Vital Signs Temperature 97.8 F 02/13/23 19:21 Pulse Rate 53 L 02/13/23 19:21 Respiratory Rate 16 02/13/23 19:21 Blood Pressure 131/78 02/13/23 19:21 Pulse Oximetry 99 02/13/23 19:21 Oxygen Delivery Method Room Air 02/13/23 19:21 GENERAL: Alert well-appearing 77 male and in no acute distress. HEENT: Head atraumatic,EOMI, pupils reactive, face symmetric, moist mucous membranes CARDIOVASCULAR: Regular rate and rhythm without murmurs, rubs or gallops. RESPIRATORY: Breath sounds equal bilaterally, no wheezes rales or rhonchi. ABDOMEN: Soft, nontender. Normoactive bowel sounds all 4 quadrants. No guarding or rebound. : No CVA tenderness EXTREMITIES: Normal range of motion, no clubbing or edema. Neurovascularly intact NEUROLOGICAL: Alert and oriented x4. SKIN: Warm, dry, no laceration, no petechiae, no rashes or lesions. Course Orders Ordered: ED Orders 02/13/23 19:25 Ictotest Urine Stat Urinalysis and Microscopic Stat Urine Culture Stat Discontinued Medications Cefazolin Sodium (Cephalexin 250 Mg Cap Prepack) 1 bottle MISC SEEINSTR ONE Stop: 02/13/23 22:32 Last Admin: 02/13/23 22:40 Dose: 500 mg Documented By: BELA Lidocaine HCl (Lidocaine 2% (Glydo) 6 Ml Gel) 6 ml TOP NOW ONE Stop: 02/13/23 21:23 Last Admin: 02/13/23 22:40 Dose: 6 ml Documented By: BELA Phenazopyridine HCl (Phenazopyridine 100 Mg Tablet) 100 mg PO NOW ONE Stop: 02/13/23 22:32 Last Admin: 02/13/23 22:39 Dose: 100 mg Documented By: BELA Vital Signs Vital signs: Vital Signs - 8 hr 02/13/23 19:21 02/13/23 20:33 02/13/23 23:57 Temperature 97.8 F 98.7 F Pulse Rate 53 L 61 55 L Respiratory Rate 16 18 18 Blood Pressure 131/78 150/73 H 143/75 H Pulse Oximetry 99 99 99 Oxygen Delivery Method Room Air Room Air Room Air MDM - Male Genitourinary Lab Data Labs: Lab Results 02/13/23 Range/Units 19:25 Urine Color Red Urine Appearance Cloudy Urine pH 7.5 (4.5-8.0) Ur Specific [place] 1.010 (1.000-1.035) Urine Protein 3+ H (Negative) Urine Glucose (UA) Trace H (Negative) g/dL Urine Ketones 1+ H (NEGATIVE) Urine Occult Blood 3+ H (Negative) Urine Nitrate Positive H (Negative) Urine Bilirubin 1+ H (NEGATIVE) Ur Bilirubin Confirm Negative (Negative) Urine Urobilinogen 2.0 H (0.2) E.U./dL Ur Leukocyte Esterase 2+ H (NEGATIVE) Urine RBC >100/hpf H (0-5/HPF) Urine WBC 5-10/hpf H (0-5/HPF) Ur Squamous Epith Cells None seen (0-5/HPF) Urine Bacteria Few (2-10) H (None) Ur Culture Indicated? Specimen cultured MDM Narrative Medical decision making narrative: Patient is a 77-year-old male who has a history of recurrent UTIs has a UTI today with nitrates and blood. It is quite bloody and clotting. Patient reports that it seems to be getting worse. Luz catheter was light yeast cause it was quite dark in the urinary cup. However it is light pink in the catheter attempted irrigation patient did not tolerate procedure well. He has very small clots it is light pink. He wanted the catheter out. I think symptom the more related to UTI. He is given Pyridium and Keflex in the ED. He urinated prior to discharge. Previous urine culture was Citrobacter in 2019 and it was pansensitive. No growth in all subsequent cultures. Discharge Plan Departure Patient Disposition: Home Clinical Impression: Recurrent UTI Instructions: DI for Urinary Tract Infection (UTI) Activity Restrictions/Additional Instructions: *You have been diagnosed with UTI *What to do: At this time please stay hydrated. Bleeding should improve. How if it appears that you are bleeding pureblood or your unable to empty bladder then you need to return to emergency department *Continue to take medications as directed Keflex 500 mg twice a day for 7 days *Follow up with your primary care provider in 2-3 days or call [phone] *Return to ER if you should have symptoms above or any new, worsening or concerning symptoms Prescriptions: New cephalexin 500 mg capsule 500 mg PO BID 7 Days Qty: 14 0RF No Action Prolia 60 mg/mL syringe 60 mg SUBCUT [id number] Qty: 1 1RF Hold Instructions: 6month holiday nitrofurantoin monohyd/m-cryst 100 mg capsule 100 mg PO BID Qty: 10 0RF Rx Instructions: must administer with a meal/food methotrexate sodium 2.5 mg tablet 20 mg PO QWEEK Refresh Optive 0.5-0.9 % drops 1 drp EYE-BOTH QID Patient Comments: 1 drop in each eye, 4x daily omega 2-hjz-uao-fish oil [Fish Oil] 1,000 mg (120 mg-180 mg) capsule 1 cap PO TID primidone 50 mg tablet 50 mg PO BEDTIME Qty: 90 3RF rosuvastatin 10 mg tablet 10 mg PO DAILY Qty: 90 3RF propranolol 20 mg tablet 20 mg PO DAILY PRN (Reason: Tremor(S)) Qty: 90 3RF folic acid 1 mg tablet 1 mg PO DAILY ibuprofen 200 mg tablet 400 mg PO Q6H Qty: 60 0RF vitamin B complex Capsule 1 cap PO DAILY calcium citrate 250 mg calcium Tablet 250 mg PO QAM cholecalciferol (vitamin D3) [Vitamin D3] 2,000 unit Tablet 2,000 unit PO DAILY Referrals: Darek Krishna MD [Primary Care Provider] - Stand Alone Forms: Patient Portal/API
[2023-02-13] MEDS: PHENAZOPYRIDINE 100 MG TABLET PO (22:39)
[2023-02-13] MEDS: cephALEXin 250 MG CAP PREPACK 1 BOTTLE MISC (22:40)
[2023-02-13] MEDS: LIDOCAINE 2% (GLYDO) 6 ML GEL TOP (22:40)
--- NOTE | 2023-02-13 23:13 | PC.NURSE ---
3way cath placed and irrigation started per verbal orders for Dr Stacy, approx 500cc of irrigation solutions went in only 125 out through when pt reported increased pain and cath was clamped. A very slow trickle of urine continued but pt remained uncomfortable and requested removal of cath, a blood/mucus clot came out with cath and patient passed 500 cc of pale pink urine.
[2023-02-13 23:57] VITALS: BP 143/75; PULSE 55; RESP 18; O2SAT 99
== END 2023-02-14 00:10 | disposition home or self-care (01) ==
PROVIDERS: Emergency Provider Emergency Medicine; PCP Internal Medicine
DX: N39.0 Urinary tract infection, site not specified (principal)
CPT/HCPCS: 81001; 87077; 87086; 87186; 99282; 99283

== ENCOUNTER → 2023-02-20 14:04 | Outpatient (CLI) | payer OTHER, SELFPAY ==
[2023-02-20 14:36] LABS: Appearance Urine UA CLEAR; Bilirubin Urine UA NEGATIVE (NEGATIVE); Color Urine UA YELLOW; Glucose Urine UA NEGATIVE (Negative); Ketones Urine UA NEGATIVE (NEGATIVE); Leukocyte Esterase Urine UA NEGATIVE (NEGATIVE); Nitrite Urine UA NEGATIVE (Negative); Occult Blood Urine UA NEGATIVE (Negative); Protein Urine UA NEGATIVE (Negative); Urobilinogen Urine UA 0.2 E.U./dL (0.2)
[2023-02-20 14:51] LABS: Bacteria Urine None Seen; Culture Indicated Urine Cult Not Indicated; RBC Urine None Seen (0-5/HPF); Squamous Epithelial Cell Urine 0-1 /HPF (0-5/HPF); WBC Urine None Seen (0-5/HPF)
== END ==
PROVIDERS: PCP Internal Medicine; Referring Provider Urology; Visit Provider Urology
DX: N39.0 Urinary tract infection, site not specified (principal); R32 Unspecified urinary incontinence
CPT/HCPCS: 81001

== ENCOUNTER → 2023-04-08 10:47 | Outpatient (CLI) | payer OTHER, SELFPAY ==
[2023-04-08 12:18] LABS: Add Manual Diff / Slide Review NO; Basophils Absolute Auto 0 /uL (0-100); Basophils Percent Auto 0.7 % (0-2); Eosinophils Absolute Auto 200 /uL (0-450); Eosinophils Percent Auto 3.3 % (2-4); Hematocrit 40.7 % (41-53); Hemoglobin 13.6 g/dL (13.5-17.5); Lymphocytes Absolute Auto 700 /uL (1100-4500); Lymphocytes Percent Auto 11.4 % (25-40); Mean Corpuscular HGB Conc 33.3 % (30-36); Mean Corpuscular Hemoglobin 30.4 PG (26-34); Mean Corpuscular Volume 91.3 fL (80-100); Monocytes Absolute Auto 800 /uL (0-900); Monocytes Percent Auto 13.7 % (3-14); Neutrophils Absolute Auto 4100 /uL (1500-7000); Neutrophils Percent Auto 70.9 % (50-75); Platelet Count 174 X10^3/uL (150-400); Red Blood Cell Count 4.46 X10^6/uL (4.5-5.9); Red Cell Distribution Width 16.3 % (11.6-14.8); White Blood Cell Count 5.8 X10^3/uL (4.5-11.0)
[2023-04-08 12:50] LABS: Erythrocyte Sedimentation Rate 8 MM/HR (0-15)
[2023-04-08 13:09] LABS: Alanine Aminotransferase 29 IU/L (<50); Albumin 3.4 g/dL (3.5-5.0); Albumin Globulin Ratio 1.4 (1.0-2.8); Alkaline Phosphatase 94 U/L (38-126); Aspartate Aminotransferase 30 IU/L (17-59); BUN Creatinine Ratio 20.8 (6-22); Bilirubin Total 1.2 mg/dL (0.2-1.3); Blood Urea Nitrogen 21 mg/dL (9-20); C-Reactive Protein Quant 1.1 mg/dL (<1.0); Calcium 9.2 mg/dL (8.4-10.2); Carbon Dioxide 26 mmol/L (22-32); Chloride 104 mmol/L (98-107); Estimated Glomerular Filt Rate > 60 mL/min (>60); Globulin 2.5 g/dL (1.7-4.1); Glucose 90 mg/dL (80-110); HEMOLYSIS < 15 (0-50); Potassium 4.3 mmol/L (3.4-5.1); Sodium 137 mmol/L (137-145); Total Protein 5.9 g/dL (6.3-8.2)
[2023-04-08 13:43] LABS: Prostate Specific Antigen < 0.064 ng/mL (0.10-4.00)
== END ==
PROVIDERS: Urology; Family Provider Internal Medicine; PCP Internal Medicine; Referring Provider Physician Assistant Medical; Visit Provider Physician Assistant Medical
DX: Z85.46 Personal history of malignant neoplasm of prostate (principal); M06.09 Rheumatoid arthritis without rheumatoid factor, multiple sites
CPT/HCPCS: 36415; 80053; 84153; 85025; 85651; 86140

== ENCOUNTER 2023-05-08 13:37 | Emergency (ER) | payer OTHER, SELFPAY ==
[2023-05-08] VITALS (10 sets, daily range): BP systolic 133–158; BP diastolic 65–83; PULSE 46–55; RESP 16–18; TEMP 36.6; O2SAT 96–100; BMI 23.1
--- NOTE | 2023-05-08 14:13 | ED_ITS ---
HPI - General Adult General Chief complaint: Urogenital-Male Stated complaint: blood in urine Time Seen by Provider: 05/08/23 13:55 Source: patient Mode of arrival: Ambulatory History of Present Illness HPI narrative: Patient is a 77-year-old male. Has had history of prostate cancer. Has also had hematuria in the past. Has had a cystoscope was in the past year because of the hematuria. He states he woke up this morning. Urinated without any issues. Went on a 2 mi hike. He admits he did not drink a whole lot of water during this time. When he returned home he had quite a bit of urinary hesitancy and frequency. He states that he was passing clots. He is unsure as to whether not he is emptying his bladder. He reports no specific trauma. He is not on blood thinners. He has had 2 prior urinary tract infections within the past year. Related Data Home Medications Medication Instructions Recorded Confirmed calcium citrate 250 mg PO QAM 12/18/17 04/16/23 cholecalciferol (vitamin D3) 50 2,000 unit PO DAILY 12/18/17 04/16/23 mcg (2,000 unit) tablet (Vitamin D3) vitamin B complex 1 cap PO DAILY 12/18/17 04/16/23 folic acid 1 mg tablet 1 mg PO DAILY 02/08/22 04/16/23 carboxymethylcellulose 0.5 1 drp EYE-BOTH QID Dry eyes 10/28/22 04/16/23 %-glycerin 0.9 % eye drops (Refresh Optive) omega 6-grq-wov-fish oil 1,000 mg 1 cap PO TID 10/28/22 04/16/23 (120 mg-180 mg) capsule (Fish Oil) methotrexate sodium 2.5 mg tablet 20 mg PO QWEEK 01/15/23 04/16/23 primidone 50 mg tablet 50 mg PO BEDTIME 04/16/23 04/16/23 Previous Rx's Medication Instructions Recorded denosumab 60 mg/mL subcutaneous 60 mg SUBCUT [id number] #1 mL 05/17/19 syringe (Prolia) rosuvastatin 10 mg tablet 10 mg PO DAILY #90 tabs 10/28/22 Allergies Allergy/AdvReac Type Severity Reaction Status Date / Time Iodinated Contrast Media Allergy Mild HOT, ITCHY Verified 04/16/23 10:41 [IODINATED CONTRAST MEDIA - IV DYE] Review of Systems Constitutional Constitutional: Reports system reviewed and no additional complaints, except as documented Gastrointestinal Gastrointestinal: Reports system reviewed and no additional complaints, except as documented Genitourinary Genitourinary: Reports system reviewed and no additional complaints, except as documented Integumentary/Breasts Skin/Breast: Reports system reviewed and no additional complaints, except as documented Neurologic Neurologic: Reports system reviewed and no additional complaints, except as documented Patient History Medical History History of radiation therapy Allergic rhinitis Epistaxis Polyneuropathy, unspecified Venous (peripheral) insufficiency Eczematous dermatitis Recurrent UTI Urinary incontinence History of prostate cancer Primary osteoarthritis involving multiple joints Rheumatoid arthritis, seronegative, multiple sites Mixed hyperlipidemia Age-related osteoporosis without current pathological fracture COVID-19 virus infection (12/01/21) Headache, migraine Essential tremor Arthritis Elevated cholesterol Squamous cell carcinoma (~05/2015) Tremor (Unknown) Osteoarthritis (Unknown) Osteoporosis (Unknown) Surgical History History of carpal tunnel release (05/31/14) Hx of prostatectomy (2014) Hx of tonsillectomy (~1949) Hx of vitrectomy (10/2011) Family History Father No problems noted. Mother No problems noted. Social History details: (Talia) household members: spouse Smoking Status: Former smoker alcohol intake: never Smoking Status: Former smoker Substance Use Type: does not use Exam Initial Vital Signs Initial Vital Signs: Vital Signs Temperature 98 F 05/08/23 13:40 Pulse Rate 55 L 05/08/23 13:40 Respiratory Rate 16 05/08/23 13:40 Blood Pressure 158/76 H 05/08/23 13:40 Pulse Oximetry 100 05/08/23 13:40 Oxygen Delivery Method Room Air 05/08/23 13:40 Const General: cooperative, comfortable and No ill appearing HENMT Head: normal to inspection and normocephalic Resp Effort & Inspection: normal respiratory effort Cardio Rate: regular rate GI Inspection: normal to inspection and non-distended Palpation: soft, No firm and tender Skin General: no rashes or lesions noted Neuro General: patient alert and patient awake Course Orders Ordered: ED Orders 05/08/23 13:45 Urinalysis and Microscopic Stat Urine Culture Stat 05/08/23 16:00 Basic Metabolic Panel Stat Complete Blood Count AUTO DIFF Stat Discontinued Medications Lidocaine HCl (Lidocaine 2% (Glydo) 6 Ml Gel) 6 ml TOP NOW ONE Stop: 05/08/23 14:14 Last Admin: 05/08/23 14:15 Dose: 6 ml Documented By: CYNTHIA Vital Signs Vital signs: Vital Signs - 8 hr 05/08/23 13:40 05/08/23 14:49 05/08/23 14:50 Temperature 98 F Pulse Rate 55 L 46 L 46 L Respiratory Rate 16 Blood Pressure 158/76 H Pulse Oximetry 100 99 99 Oxygen Delivery Method Room Air 05/08/23 14:50 05/08/23 15:00 05/08/23 15:00 Temperature Pulse Rate 46 L Respiratory Rate Blood Pressure 140/67 133/71 Pulse Oximetry 99 Oxygen Delivery Method 05/08/23 15:30 05/08/23 15:30 05/08/23 16:00 Temperature Pulse Rate 48 L 47 L Respiratory Rate Blood Pressure 142/77 H Pulse Oximetry 100 100 Oxygen Delivery Method 05/08/23 16:01 05/08/23 16:01 05/08/23 16:30 Temperature Pulse Rate 48 L 49 L Respiratory Rate Blood Pressure 151/83 H Pulse Oximetry 100 96 Oxygen Delivery Method 05/08/23 16:30 Temperature Pulse Rate Respiratory Rate Blood Pressure 152/67 H Pulse Oximetry Oxygen Delivery Method Medical Decision Making Medical Records Medical records reviewed: Yes I reviewed the patient's medical records. Lab Data Lab results reviewed: Yes I reviewed the patient's lab results. 05/08/23 16:00 05/08/23 16:00 Labs: Lab Results 05/08/23 05/08/23 Range/Units 13:45 16:00 WBC 4.6 (4.5-11.0) X10^3/uL RBC 4.60 (4.5-5.9) X10^6/uL Hgb 13.8 (13.5-17.5) g/dL Hct 41.1 (41-53) % MCV 89.5 (80-100) fL MCH 29.9 (26-34) PG MCHC 33.4 (30-36) % RDW 15.8 H (11.6-14.8) % Plt Count 119 L (150-400) X10^3/uL Neut % (Auto) 71.5 (50-75) % Lymph % (Auto) 20.2 L (25-40) % [place] % (Auto) 5.4 (3-14) % Eos % (Auto) 2.3 (2-4) % Baso % (Auto) 0.6 (0-2) % Neut # (Auto) 3300 (0745-2559) /uL Lymph # (Auto) 900 L (3434-9786) /uL [place] # (Auto) 200 (0-900) /uL Eos # (Auto) 100 (0-450) /uL Baso # (Auto) 0 (0-100) /uL Sodium 135 L (137-145) mmol/L Potassium 3.9 (3.4-5.1) mmol/L Chloride 105 (98-107) mmol/L Carbon Dioxide 24 (22-32) mmol/L BUN 22 H (9-20) mg/dL Creatinine 0.88 (0.66-1.25) mg/dL Estimated GFR > 60 (>60) mL/min BUN/Creatinine Ratio 25.0 H (6-22) Glucose 86 (80-110) mg/dL Calcium 8.7 (8.4-10.2) mg/dL Urine Color Red Urine Appearance Other Urine pH TNP Ur Specific [place] TNP Urine Protein TNP Urine Glucose (UA) TNP Urine Ketones TNP Urine Occult Blood TNP Urine Nitrate TNP Urine Bilirubin TNP Urine Urobilinogen TNP Ur Leukocyte Esterase TNP Urine RBC >100/hpf H (0-5/HPF) Urine WBC 0-1/hpf (0-5/HPF) Ur Squamous Epith Cells 0-1 /hpf (0-5/HPF) Urine Bacteria Occasional (0-1) (None) Ur Culture Indicated? Cult not indicated MDM Narrative Medical decision making narrative: Blood counts unremarkable. Kidney functions unremarkable. Urinalysis is not consistent with an infection. He did have quite a bit of retained urine in Luz catheter was placed and patient was irrigated until he had a light pink urine. There is no continued clots. Had a long discussion with him regarding his symptoms. Unsure of the exact etiology although upon further questioning he states while he was the hike he states that a dog did jump up on him and he was hit right in his bladder with the dogs paw. He did not think that it hurt him all that much but that was the only potential trauma that he had. Had a discussion with him regarding options to include removing the Luz catheter versus leaving it in. We discussed the risks and benefits of this to include retaining urine once again. After this discussion he would like to have the catheter removed. Will have the patient follow-up with urology and he was given return precautions. Discharge Plan Departure Patient Disposition: Home Clinical Impression: Hematuria, Acute urinary retention Instructions: DI for Hematuria Activity Restrictions/Additional Instructions: Continue to take all of your medications as directed. I do recommend tomorrow you contact the urology office for follow-up. Be sure that you were increasing your fluid intake so that you are urinating often. Return to the emergency department for new or worsening symptoms or inability to urinate like we discussed. Prescriptions: No Action Prolia 60 mg/mL syringe 60 mg SUBCUT [id number] Qty: 1 1RF Hold Instructions: 6month holiday methotrexate sodium 2.5 mg tablet 20 mg PO QWEEK Refresh Optive 0.5-0.9 % drops 1 drp EYE-BOTH QID Patient Comments: 1 drop in each eye, 4x daily omega 9-vbe-txp-fish oil [Fish Oil] 1,000 mg (120 mg-180 mg) capsule 1 cap PO TID rosuvastatin 10 mg tablet 10 mg PO DAILY Qty: 90 3RF folic acid 1 mg tablet 1 mg PO DAILY vitamin B complex Capsule 1 cap PO DAILY calcium citrate 250 mg calcium Tablet 250 mg PO QAM cholecalciferol (vitamin D3) [Vitamin D3] 2,000 unit Tablet 2,000 unit PO DAILY primidone 50 mg tablet 50 mg PO BEDTIME Referrals: Darek Krishna MD [Primary Care Provider] - Lucien Olmos MD [Physician] - Stand Alone Forms: Patient Portal/API
[2023-05-08] MEDS: LIDOCAINE 2% (GLYDO) 6 ML GEL TOP (14:15)
[2023-05-08 14:51] LABS: Color Urine UA Red
[2023-05-08 14:52] LABS: Appearance Urine UA OTHER
[2023-05-08 15:03] LABS: Bacteria Urine Occasional (0-1); Culture Indicated Urine Cult Not Indicated; RBC Urine >100/HPF (0-5/HPF); Squamous Epithelial Cell Urine 0-1 /HPF (0-5/HPF); WBC Urine 0-1/HPF (0-5/HPF)
--- NOTE | 2023-05-08 15:50 | PC.NURSE ---
Pt states resting HR @ baseline is mid 40's to low 50's.
[2023-05-08 16:17] LABS: Add Manual Diff / Slide Review NO; Basophils Absolute Auto 0 /uL (0-100); Basophils Percent Auto 0.6 % (0-2); Eosinophils Absolute Auto 100 /uL (0-450); Eosinophils Percent Auto 2.3 % (2-4); Hematocrit 41.1 % (41-53); Hemoglobin 13.8 g/dL (13.5-17.5); Lymphocytes Absolute Auto 900 /uL (1100-4500); Lymphocytes Percent Auto 20.2 % (25-40); Mean Corpuscular HGB Conc 33.4 % (30-36); Mean Corpuscular Hemoglobin 29.9 PG (26-34); Mean Corpuscular Volume 89.5 fL (80-100); Monocytes Absolute Auto 200 /uL (0-900); Monocytes Percent Auto 5.4 % (3-14); Neutrophils Absolute Auto 3300 /uL (1500-7000); Neutrophils Percent Auto 71.5 % (50-75); Platelet Count 119 X10^3/uL (150-400); Red Cell Distribution Width 15.8 % (11.6-14.8); White Blood Cell Count 4.6 X10^3/uL (4.5-11.0)
[2023-05-08 16:30] LABS: Blood Urea Nitrogen 22 mg/dL (9-20); Calcium 8.7 mg/dL (8.4-10.2); Carbon Dioxide 24 mmol/L (22-32); Chloride 105 mmol/L (98-107); Estimated Glomerular Filt Rate > 60 mL/min (>60); Glucose 86 mg/dL (80-110); HEMOLYSIS 18 (0-50); Potassium 3.9 mmol/L (3.4-5.1); Sodium 135 mmol/L (137-145)
== END 2023-05-08 17:46 | disposition home or self-care (01) ==
PROVIDERS: Emergency Provider Emergency Medicine; Family Provider Internal Medicine; PCP Internal Medicine
DX: R31.9 Hematuria, unspecified (principal); R33.8 Other retention of urine
CPT/HCPCS: 51702; 51798; 80048; 81001; 85025; 87086; 99283

== ENCOUNTER 2023-05-08 20:26 | Emergency (ER) | payer OTHER, SELFPAY ==
--- NOTE | 2023-05-08 20:30 | ED.GENADULT ---
HPI - General Adult General Chief complaint: Urogenital-Male Stated complaint: unable to void Time Seen by Provider: 05/08/23 20:30 History of Present Illness HPI narrative: 77-year-old male with history of prostate cancer and history of hematuria with cystoscopy in the last year presents with 2nd visit of day now complaining of an inability to void. He was seen and evaluated earlier and irrigated, refused a Luz catheter and went home. Since then he feels the urge to urinate but has had very little success, only the passage of some small clots. He does not take blood thinners. He denies any fever chills. He denies much in the way of pain. Related Data Home Medications Medication Instructions Recorded Confirmed calcium citrate 250 mg PO QAM 12/18/17 04/16/23 cholecalciferol (vitamin D3) 50 2,000 unit PO DAILY 12/18/17 04/16/23 mcg (2,000 unit) tablet (Vitamin D3) vitamin B complex 1 cap PO DAILY 12/18/17 04/16/23 folic acid 1 mg tablet 1 mg PO DAILY 02/08/22 04/16/23 carboxymethylcellulose 0.5 1 drp EYE-BOTH QID Dry eyes 10/28/22 04/16/23 %-glycerin 0.9 % eye drops (Refresh Optive) omega 7-uki-mez-fish oil 1,000 mg 1 cap PO TID 10/28/22 04/16/23 (120 mg-180 mg) capsule (Fish Oil) methotrexate sodium 2.5 mg tablet 20 mg PO QWEEK 01/15/23 04/16/23 primidone 50 mg tablet 50 mg PO BEDTIME 04/16/23 04/16/23 Previous Rx's Medication Instructions Recorded denosumab 60 mg/mL subcutaneous 60 mg SUBCUT [id number] #1 mL 05/17/19 syringe (Prolia) rosuvastatin 10 mg tablet 10 mg PO DAILY #90 tabs 10/28/22 tamsulosin 0.4 mg capsule (Flomax) 0.4 mg PO DAILY #30 caps 05/08/23 Allergies Allergy/AdvReac Type Severity Reaction Status Date / Time Iodinated Contrast Media Allergy Mild HOT, ITCHY Verified 04/16/23 10:41 [IODINATED CONTRAST MEDIA - IV DYE] Review of Systems Review of Systems Narrative: GENERAL: Denies chills, fatigue, malaise, fever, sweats. HEENT: Denies sinus pain, ear pain, sore throat, difficulty swallowing, dizziness. RESPIRATORY: Denies dyspnea, cough, wheezing, hemoptysis, sputum. CARDIOVASCULAR: Denies chest pain, palpitations, orthopnea, edema, GASTROINTESTINAL: Denies nausea, vomiting, abdominal pain, diarrhea, constipation, melena. : See HPI MUSCULOSKELETAL: denies weakness, joint pain, or bony pain SKIN: Denies rash, skin lesions, or other NEUROLOGIC: Denies weakness, headache, numbness, change in speech, confusion, seizures, incoordination. PSYCHIATRIC: No concerning psychosocial issues. 12 point review of systems is negative except for those stated above Patient History Medical History History of radiation therapy Allergic rhinitis Epistaxis Polyneuropathy, unspecified Venous (peripheral) insufficiency Eczematous dermatitis Recurrent UTI Urinary incontinence History of prostate cancer Primary osteoarthritis involving multiple joints Rheumatoid arthritis, seronegative, multiple sites Mixed hyperlipidemia Age-related osteoporosis without current pathological fracture COVID-19 virus infection (12/01/21) Headache, migraine Essential tremor Arthritis Elevated cholesterol Squamous cell carcinoma (~05/2015) Tremor (Unknown) Osteoarthritis (Unknown) Osteoporosis (Unknown) Surgical History Hx of vitrectomy (10/2011) Hx of tonsillectomy (~1950) History of carpal tunnel release (05/31/14) Hx of prostatectomy (2014) Family History Father No problems noted. Mother No problems noted. Social History details: (Talia) household members: spouse Smoking Status: Former smoker alcohol intake: never Smoking Status: Former smoker Substance Use Type: does not use Exam Narrative Exam Narrative: GEN: AOx3 and in mild distress EYES: Pupils are equal, round, and reactive to light and accommodation. Extraoccular muscles are intact bilaterally. There is no subconjunctival hemorrhage or exudate. CHEST: Lungs are clear to auscultation bilaterally and free of wheezes, rales, or rhonchi. Heart rate is regular rhythm, there are no murmurs, clicks, rubs, or gallops. There is no chest wall tenderness. ABD: Abdomen is soft and mild suprapubic fullness, bladder scan notes postvoid residual of about 65, however bedside point of care ultrasound demonstrates a distended bladder. There is no guarding or rebound. Bowel sounds are normal in all 4 quadrants. There is no mass or organomegaly. EXT: Full painless ROM of all extremities with no loss of sensation or strength. SKIN: Warm, pink, and dry. No erythema or rash Initial Vital Signs Initial Vital Signs: Vital Signs Temperature 98.7 F 05/08/23 20:34 Pulse Rate 54 L 05/08/23 20:34 Respiratory Rate 16 05/08/23 20:34 Blood Pressure 171/81 H 05/08/23 20:34 Pulse Oximetry 100 05/08/23 20:34 Oxygen Delivery Method Room Air 05/08/23 20:34 Course Course Course Narrative: Patient seen earlier for hematuria and urinary retention, he had been irrigated to clear but did not want a Luz catheter. He came back requesting 1. Luz catheter placed and irrigated Orders Ordered: Discontinued Medications Lidocaine HCl (Lidocaine 2% (Glydo) 6 Ml Gel) 6 ml TOP NOW ONE Stop: 05/08/23 21:46 Last Admin: 05/08/23 22:15 Dose: 6 ml Documented By: Vital Signs Vital signs: Vital Signs - 8 hr 05/08/23 20:34 05/08/23 22:19 05/08/23 22:20 Temperature 98.7 F Pulse Rate 54 L 51 L Respiratory Rate 16 18 Blood Pressure 171/81 H 171/81 H Pulse Oximetry 100 100 Oxygen Delivery Method Room Air 05/08/23 22:30 05/08/23 22:30 Temperature Pulse Rate 53 L Respiratory Rate Blood Pressure 153/73 H Pulse Oximetry 100 Oxygen Delivery Method Room Air Medical Decision Making MDM Narrative Medical decision making narrative: [77] year old patient presents with inability to urinate for the 2nd time today, was here earlier and did not want a Luz catheter left in place Multiple etiologies for patient's symptoms considered including, but not limited to: [ urinary retention versus other] Prior Charts reviewed in our EMR Primary Historian: patient Labs reviewed and interpreted by myself: no evidence of an infectious process patient's history and physical exam are reassuring. Patient requesting Luz catheter be placed that he refused earlier today. Catheter placed, blood-tinged urine in Luz bag, not gross hematuria, no indication for further workup at this time. He does have an existing relationship with local urology in his encouraged to follow-up: Patient's symptoms improved over duration of stay with above-stated therapies. Findings and discharge diagnosis discussed with patient/family followed by verbalization of understanding Return precautions discussed with patient/family whom verbalize understanding of diagnosis and plan Discharge Plan Departure Patient Disposition: Home Clinical Impression: Acute urinary retention, Hematuria Instructions: DI for Hematuria, DI for Urinary Retention in Men Activity Restrictions/Additional Instructions: *You have been diagnosed with [urinary retention and hematuria] *What to do: *Please continue to take your regular medications as directed. [x ] New medication prescriptions sent to your pharmacy: [ [facility]] [ ] New medication written as a paper prescription [ ] No new medications given *Please follow up with Dr. Olmos early next week, call tomorrow morning for an appointment. Let them know you were seen in the Emergency Department and that we ask that you be seen in follow up. We will electronically transmit a record of today's note *Return to Emergency Department if you should have any new, worsening or concerning symptoms, such as [fever greater than 101 F, shaking chills, worsening pain, persistent vomiting or other bothersome symptoms] Prescriptions: New tamsulosin [Flomax] 0.4 mg capsule 0.4 mg PO DAILY Qty: 30 0RF No Action Prolia 60 mg/mL syringe 60 mg SUBCUT [id number] Qty: 1 1RF Hold Instructions: 6month holiday methotrexate sodium 2.5 mg tablet 20 mg PO QWEEK Refresh Optive 0.5-0.9 % drops 1 drp EYE-BOTH QID Patient Comments: 1 drop in each eye, 4x daily omega 0-ffw-kxx-fish oil [Fish Oil] 1,000 mg (120 mg-180 mg) capsule 1 cap PO TID rosuvastatin 10 mg tablet 10 mg PO DAILY Qty: 90 3RF folic acid 1 mg tablet 1 mg PO DAILY vitamin B complex Capsule 1 cap PO DAILY calcium citrate 250 mg calcium Tablet 250 mg PO QAM cholecalciferol (vitamin D3) [Vitamin D3] 2,000 unit Tablet 2,000 unit PO DAILY primidone 50 mg tablet 50 mg PO BEDTIME Referrals: Darek Krishna MD [Primary Care Provider] - Lucien Olmos MD [Physician] - Stand Alone Forms: Patient Portal/API
[2023-05-08 20:34] VITALS: BP 171/81; PULSE 54; RESP 16; TEMP 37.1; O2SAT 100; BMI 23.1
[2023-05-08] MEDS: LIDOCAINE 2% (GLYDO) 6 ML GEL TOP (22:15)
[2023-05-08 22:19] VITALS: BP 171/81
[2023-05-08 22:20] VITALS: PULSE 51; RESP 18; O2SAT 100
[2023-05-08 22:30] VITALS: BP 153/73; PULSE 53; O2SAT 100
== END 2023-05-08 22:45 | disposition home or self-care (01) ==
PROVIDERS: Emergency Provider Emergency Medicine; Family Provider Internal Medicine; PCP Internal Medicine
DX: R33.8 Other retention of urine (principal); R31.9 Hematuria, unspecified
CPT/HCPCS: 51798

== ENCOUNTER → 2023-05-13 14:29 | Outpatient (CLI) | payer OTHER, SELFPAY | PROVIDERS: Family Provider Internal Medicine; PCP Internal Medicine; Visit Provider Urology | DX: R31.0 Gross hematuria (principal); R33.8 Other retention of urine; R32 Unspecified urinary incontinence | CPT/HCPCS: 81002; 87077; 87086; 87186 ==

== ENCOUNTER → 2023-06-04 13:43 | Outpatient (CLI) | payer OTHER, SELFPAY ==
[2023-06-04 16:31] LABS: Appearance Urine UA TURBID; Bilirubin Urine UA NEGATIVE (NEGATIVE); Color Urine UA RED; Glucose Urine UA NEGATIVE (Negative); Ketones Urine UA NEGATIVE (NEGATIVE); Leukocyte Esterase Urine UA NEGATIVE (NEGATIVE); Nitrite Urine UA NEGATIVE (Negative); Occult Blood Urine UA 3+ (Negative); Protein Urine UA TRACE (Negative); Urobilinogen Urine UA 0.2 E.U./dL (0.2); pH Urine UA 5.5 (4.5-8.0)
[2023-06-04 16:42] LABS: Bacteria Urine Occasional (0-1); Culture Indicated Urine Cult Not Indicated; RBC Urine >100/HPF (0-5/HPF); Squamous Epithelial Cell Urine 0-1 /HPF (0-5/HPF); WBC Urine 0-1/HPF (0-5/HPF)
== END ==
PROVIDERS: Family Provider Internal Medicine; PCP Internal Medicine; Visit Provider Urology
DX: R31.0 Gross hematuria (principal); N39.0 Urinary tract infection, site not specified; R32 Unspecified urinary incontinence; Z92.3 Personal history of irradiation; Z85.46 Personal history of malignant neoplasm of prostate
CPT/HCPCS: 51798; 52000; 81001; 87086

== ENCOUNTER → 2023-06-17 09:59 | Outpatient (CLI) | payer OTHER, SELFPAY | PROVIDERS: Family Provider Internal Medicine; PCP Internal Medicine; Visit Provider Urology | DX: N39.0 Urinary tract infection, site not specified (principal); R33.9 Retention of urine, unspecified; R31.0 Gross hematuria; R32 Unspecified urinary incontinence; Z92.3 Personal history of irradiation; Z90.79 Acquired absence of other genital organ(s); Z85.46 Personal history of malignant neoplasm of prostate | CPT/HCPCS: 51798; 81002; 87086; 99214 ==

== ENCOUNTER → 2023-07-29 13:53 | Outpatient (CLI) | payer OTHER, SELFPAY ==
[2023-07-29 14:26] LABS: Add Manual Diff / Slide Review NO; Basophils Absolute Auto 0 /uL (0-100); Basophils Percent Auto 0.7 % (0-2); Eosinophils Absolute Auto 0 /uL (0-450); Hematocrit 42.9 % (41-53); Hemoglobin 14.5 g/dL (13.5-17.5); Lymphocytes Absolute Auto 800 /uL (1100-4500); Lymphocytes Percent Auto 18.3 % (25-40); Mean Corpuscular HGB Conc 33.7 % (30-36); Mean Corpuscular Hemoglobin 29.8 PG (26-34); Mean Corpuscular Volume 88.5 fL (80-100); Monocytes Absolute Auto 500 /uL (0-900); Monocytes Percent Auto 10.6 % (3-14); Neutrophils Absolute Auto 3000 /uL (1500-7000); Neutrophils Percent Auto 69.4 % (50-75); Platelet Count 150 X10^3/uL (150-400); Red Blood Cell Count 4.85 X10^6/uL (4.5-5.9); White Blood Cell Count 4.4 X10^3/uL (4.5-11.0)
[2023-07-29 14:46] LABS: Alanine Aminotransferase 35 IU/L (<50); Albumin 3.5 g/dL (3.5-5.0); Albumin Globulin Ratio 1.2 (1.0-2.8); Alkaline Phosphatase 70 U/L (38-126); Aspartate Aminotransferase 39 IU/L (17-59); BUN Creatinine Ratio 19.2 (6-22); Bilirubin Total 1.3 mg/dL (0.2-1.3); Blood Urea Nitrogen 19 mg/dL (9-20); C-Reactive Protein Quant 0.5 mg/dL (<1.0); Calcium 8.9 mg/dL (8.4-10.2); Carbon Dioxide 29 mmol/L (22-32); Chloride 103 mmol/L (98-107); Estimated Glomerular Filt Rate > 60 mL/min (>60); Glucose 57 mg/dL (80-110); HEMOLYSIS < 15 (0-50); Potassium 4.6 mmol/L (3.4-5.1); Sodium 136 mmol/L (137-145); Total Protein 6.5 g/dL (6.3-8.2)
[2023-07-29 20:23] LABS: Erythrocyte Sedimentation Rate 4 MM/HR (0-15)
== END ==
LOC: LAB 13:54
PROVIDERS: Family Provider Internal Medicine; PCP Internal Medicine; Referring Provider Physician Assistant Medical; Visit Provider Physician Assistant Medical
DX: M06.09 Rheumatoid arthritis without rheumatoid factor, multiple sites (principal)
CPT/HCPCS: 36415; 80053; 85025; 85651; 86140

== ENCOUNTER → 2023-11-19 12:39 | Outpatient (CLI) | payer OTHER, SELFPAY ==
[2023-11-19 13:15] LABS: Appearance Urine UA CLEAR; Bilirubin Urine UA NEGATIVE (NEGATIVE); Color Urine UA YELLOW; Glucose Urine UA NEGATIVE (Negative); Ketones Urine UA TRACE (NEGATIVE); Leukocyte Esterase Urine UA NEGATIVE (NEGATIVE); Nitrite Urine UA NEGATIVE (Negative); Occult Blood Urine UA NEGATIVE (Negative); Protein Urine UA NEGATIVE (Negative); Specific Gravity Urine UA <=1.005 (1.000-1.035); Urobilinogen Urine UA 0.2 E.U./dL (0.2); pH Urine UA 5.5 (4.5-8.0)
[2023-11-19 13:17] LABS: Urine Volume 10mL (spun)
[2023-11-19 13:19] LABS: Bacteria Urine None Seen; Culture Indicated Urine Cult Not Indicated; RBC Urine None Seen (0-5/HPF); Squamous Epithelial Cell Urine None Seen (0-5/HPF); WBC Urine None Seen (0-5/HPF)
== END ==
PROVIDERS: Family Provider Internal Medicine; PCP Internal Medicine; Referring Provider Urology; Visit Provider Urology
DX: N30.40 Irradiation cystitis without hematuria (principal); R32 Unspecified urinary incontinence; N39.0 Urinary tract infection, site not specified; R31.0 Gross hematuria; R33.9 Retention of urine, unspecified
CPT/HCPCS: 81001

== ENCOUNTER → 2023-11-24 08:08 | Outpatient (CLI) | payer OTHER, SELFPAY ==
--- NOTE | 2023-11-24 08:09 | DI.US.S_ITS ---
PROCEDURE: US SCROTUM INDICATIONS: right testicle swelling and sore to the touch TECHNIQUE: Real-time scanning was performed of the scrotum and testicles, with image documentation. Color and pulse Doppler interrogation was performed of both testicles. COMPARISON: None. FINDINGS: Right: Testicle is normal in size at 3.1 x 1.3 x 1.5 cm, and homogenous in echotexture. Epididymis is normal in overall size and morphology. Trace hydrocele. Varicocele is seen inferior to the testicle, measuring 1.4 x 1.6 x 1.7 cm overall. . Overlying scrotal skin is normal in thickness. Left: Testicle is normal in size at 3.1 x 1.7 x 2.2 cm, and homogeneous in echotexture. Epididymis is normal in overall size and morphology. Trace hydrocele. No varicocele. Overlying scrotal skin is normal in thickness. Doppler: Color and pulse Doppler demonstrate normal and symmetric arterial flow in both testicles. IMPRESSION: 1. 1.7 cm area of varicocele inferior to the right testicle. Please note isolated right varicocele raises concern for secondary varicocele. Recommend further evaluation with CT abdomen pelvis with intravenous contrast. Dictated by: Roxanne Daugherty M.D. on 11/24/2023 at 12:37 Approved by: Roxanne Daugherty M.D. on 11/24/2023 at 12:47
== END ==
LOC: US 08:08
PROVIDERS: Family Provider Internal Medicine; PCP Internal Medicine; Referring Provider Urology; Visit Provider Urology
DX: N30.40 Irradiation cystitis without hematuria (principal); I86.1 Scrotal varices; Z85.46 Personal history of malignant neoplasm of prostate
CPT/HCPCS: 76870

== ENCOUNTER → 2023-12-11 14:27 | Outpatient (CLI) | payer OTHER, SELFPAY ==
[2023-12-11 15:12] LABS: Estimated Glomerular Filt Rate > 60 mL/min (>60)
== END ==
PROVIDERS: Radiology Diagnostic Radiology; Family Provider Internal Medicine; PCP Internal Medicine; Referring Provider Urology; Visit Provider Urology
DX: I86.1 Scrotal varices (principal)
CPT/HCPCS: 82565

== ENCOUNTER → 2023-12-12 09:40 | Outpatient (CLI) | payer OTHER, SELFPAY ==
--- NOTE | 2023-12-12 09:41 | DI.CT.S_ITS ---
PROCEDURE: CT ABDOMEN PELVIS W CON INDICATIONS: Radiologist's recommendation rule out secondary varicocele TECHNIQUE: After the administration of intravenous contrast, axial sections acquired from the lung bases to the pubic symphysis. Coronal and sagittal reformats were performed. For radiation dose reduction, the following was used: automated exposure control, adjustment of mA and/or kV according to patient size. COMPARISON: [facility], CT, ABDOMEN/PELVIS WITH CONTRAST, 06/11/2017, 10:01. FINDINGS: Image quality: Diagnostic. Lower Chest: Small hiatal hernia. ABDOMEN: Liver: No solid mass. Calcified granuloma. Gallbladder: Cholelithiasis without wall thickening or adjacent fat stranding to suggest acute cholecystitis. Biliary ducts: No biliary dilation. Pancreas: No ductal dilation. Fatty atrophy. Spleen: Size is within normal limits. Calcified granuloma. Adrenal Glands: No adrenal nodules. Kidneys and Ureters: No hydronephrosis. No solid mass. No complex renal cystic lesion which requires follow up. Stomach and Bowel: Normal colonic caliber, without significant wall thickening. Colonic diverticulosis without evidence of diverticulitis. Fecal debris within the small bowel. Peritoneum: No abnormal intraperitoneal fluid. No free air. Ventral Wall: No significant ventral hernia. Abdominal Nodes: No retroperitoneal or mesenteric adenopathy by size criteria. Vessels: Aorta and inferior vena cava are normal in size. PELVIS: Pelvic Organs: Prostatectomy. Bladder: Diffuse bladder wall thickening. Pelvic Nodes: No enlarged lymph nodes. Miscellaneous: No inguinal hernias are seen. Bones: No aggressive osseous abnormality. Moderate vertebral body height loss of the T10 vertebrae, likely age related and stable from prior. IMPRESSION: No obstructing mass to explain the patient's right-sided varicocele. Diffuse bladder wall thickening, which could be a sequela of chronic outlet obstruction or indicate cystitis. Cholelithiasis without wall thickening or adjacent fat stranding to suggest acute cholecystitis. Colonic diverticulosis without evidence of diverticulitis. Sequela of prior granulomatous disease. Dictated by: Nando Jones M.D. on 12/12/2023 at 13:55 Approved by: Nando Jones M.D. on 12/12/2023 at 13:59
== END ==
PROVIDERS: PCP Internal Medicine; Referring Provider Urology; Visit Provider Urology
DX: I86.1 Scrotal varices (principal); R31.0 Gross hematuria; K80.20 Calculus of gallbladder without cholecystitis without obstruction; K57.90 Diverticulosis of intestine, part unspecified, without perforation or abscess without bleeding; K44.9 Diaphragmatic hernia without obstruction or gangrene; Z85.46 Personal history of malignant neoplasm of prostate
CPT/HCPCS: 74177; Q9967

== ENCOUNTER → 2024-04-11 14:51 | Outpatient (CLI) | payer OTHER, SELFPAY | PROVIDERS: PCP Internal Medicine; Visit Provider Physician Assistant Surgical | DX: T14.8XXA Other injury of unspecified body region, initial encounter (principal) | CPT/HCPCS: 87070; 87075; 87205 ==